=== PATIENT | male | born 1960 | race American Indian/Alaskan Native ===

== ENCOUNTER 2019-08-22 21:43 | Inpatient (IN) | payer OTHER ==
[2019-08-22 23:10] LABS: Hematocrit 35.7 % (35.5-45.6); Hemoglobin 11.8 gm/dl (11.8-15.2); Mean Corpuscular HGB Conc 33 % (32-34); Mean Corpuscular Volume 85 fl (84-94); Platelet Count 185 K/mm3 (140-440); Red Blood Count 4.22 M/mm3 (3.65-5.03); Red Cell Distribution Width 13.6 % (13.2-15.2)
[2019-08-22 23:19] LABS: INR 1.02 (0.87-1.13)
[2019-08-22 23:21] LABS: Calcium 7.5 mg/dL (8.4-10.2)
[2019-08-22] MEDS ORDERED: hydrALAZINE 25 MG TAB PO ONE (23:40)
[2019-08-22] MEDS ORDERED: amLODIPine 5 MG TAB PO ONE (23:40)
[2019-08-22] MEDS ORDERED: METOPROLOL TARTRATE 50 MG TAB PO ONE (23:40)
--- NOTE | 2019-08-22 23:54 | Emergency Department Report ---
ED Medical Clearance HPI - General Chief complaint: High BP Stated complaint: PYHSICIAN REFERRAL ABNORMAL LABS Time Seen by Provider: 08/22/19 23:26 Source: patient, RN notes reviewed, old records reviewed Mode of arrival: Ambulatory Limitations: No Limitations - History of Present Illness Initial comments: Patient is a 58-year-old gentleman. He is not known to myself previously. He denies fever, cough, coronavirus risk factors and symptomatology. He is noncompliant with prescription medications, and appears to have a history of diabetes, stroke versus TIA, hypertension, high cholesterol The patient is sent to the emergency room by a local physicians group. The patient reports that he was at work, and his coworkers felt that he was "getting forgetful." His employer then informed him that he cannot return to work until he had medical clearance. He thus presented to an outpatient medical group, and was found to have renal insufficiency of uncertain duration. The patient denies physical pain. He denies all complaints at this time. He states that if he were not instructed to present to the emergency room for renal insufficiency, he would not have presented to the ER. MD Complaint: medical clearance request Reason for Medical Clearance: laboratory abnormality Alledged Intoxication: No Compliant with Home Medications: No Traumatic Symptoms: denies traumatic injury Allergies/Adverse reactions: Allergies Allergy/AdvReac Type Severity Reaction Status Date / Time No Known Allergies Allergy Unverified 08/22/19 22:22 ED Review of Systems ROS: Stated complaint: PYHSICIAN REFERRAL ABNORMAL LABS Other details as noted in HPI Comment: All other systems reviewed and negative ED Past Medical Hx - Past Medical History Previous Medical History?: Yes Hx Hypertension: Yes Hx Diabetes: Yes Additional medical history: descending Aorta, heart murmur - Surgical History Past Surgical History?: Yes Additional Surgical History: eye - Social History Smoking Status: Never Smoker Substance Use Type: None ED Physical Exam - General Limitations: No Limitations General appearance: alert, in no apparent distress - Head Head exam: Present: atraumatic, normocephalic - Eye Eye exam: Present: normal appearance, PERRL, EOMI, other (Visual acuity intact to finger counting, color perception, reading at a close distance). Absent: nystagmus - ENT ENT exam: Present: normal exam, normal orophraynx, mucous membranes moist, normal external ear exam - Neck Neck exam: Present: normal inspection, full ROM. Absent: tenderness, meningismus - Respiratory Respiratory exam: Present: normal lung sounds bilaterally. Absent: respiratory distress - Cardiovascular Cardiovascular Exam: Present: normal rhythm, tachycardia, normal heart sounds. Absent: systolic murmur, diastolic murmur, rubs, gallop - GI/Abdominal GI/Abdominal exam: Present: soft, normal bowel sounds. Absent: distended, ten derness, guarding, rebound, rigid, pulsatile mass - Rectal Rectal exam: Present: deferred - Extremities Exam Extremities exam: Present: normal inspection, full ROM, other (2+ pulses noted in the bilateral upper and lower extremities. There is no palpable cord. negative Homans sign. Muscular compartments are soft. The pelvis is stable.). Absent: pedal edema, calf tenderness - Back Exam Back exam: Present: normal inspection. Absent: tenderness, CVA tenderness (R), CVA tenderness (L), paraspinal tenderness, vertebral tenderness - Neurological Exam Neurological exam: Present: alert (Patient is alert and oriented. He is able to recall 3 out of 3 words at 0 minutes and 5 minutes. He can add 5+5, but he cannot subtract 100-7 (answers 94).), oriented X3, normal gait, other (No facial droop. Tongue midline. Extraocular movements intact bilaterally. Facial sensation intact to light touch in V1, V2, V3 distribution bilaterally. 5 and a 5 strength in 4 extremities. Sensation intact to light touch in 4 extremities.). Absent: motor sensory deficit - Psychiatric Psychiatric exam: Present: normal affect, normal mood - Skin Skin exam: Present: warm, dry, intact, normal color. Absent: rash ED Course Vital Signs 08/22/19 08/23/19 22:21 00:02 Temperature 98.2 F Pulse Rate 102 H 96 H Respiratory 18 Rate Blood Pressure 226/137 216/123 O2 Sat by Pulse 99 Oximetry - Reevaluation(s) Reevaluation #1: 08/22/19 23:52 Differential diagnosis, including but not limited to: Hypertensive urgency/emergency, intracranial hemorrhage, transient ischemic attack, renal insufficiency Assessment and plan: 58-year-old gentleman with history of forgetfulness, medication noncompliance, clinically sober at this time, GCS 15, NIH score 0, with market hypertension, and renal insufficiency of uncertain chronicity and duration. He does have some of his old prescriptions with him, which he is not taking, and we will therefore give him his hydralazine, metoprolol, and Norvasc. We will obtain noncontrast CT scan of the brain. He is also found to have mild myositis. Discussed history, physical, laboratory studies with nephrology on-call, Dr. Moncada. Admission is recommended for blood pressure control, and vital sign optimization. Reevaluation #2: 08/23/19 00:15 Patient was given oral medications. He initially indicated that he did not want to stay in the hospital. However, he now indicates that he is amenable to hospitalization. Nephrology, Dr. Moncada, will follow in consultation. Hospital physician, Dr. Orourke to admit ED Medical Decision Making - Lab Data Result diagrams: 08/22/19 22:56 08/22/19 22:56 Vital Signs 08/22/19 22:21 Temperature 98.2 F Pulse Rate 102 H Respiratory 18 Rate Blood Pressure 226/137 O2 Sat by Pulse 99 Oximetry Lab Results 08/22/19 08/22/19 08/22/19 Range/Units 22:56 22:56 22:56 WBC 8.9 (4.5-11.0) K/mm3 RBC 4.22 (3.65-5.03) M/mm3 Hgb 11.8 (11.8-15.2) gm/dl Hct 35.7 (35.5-45.6) % MCV 85 (84-94) fl MCH 28 (28-32) pg MCHC 33 (32-34) % RDW 13.6 (13.2-15.2) % Plt Count 185 (140-440) K/mm3 PT 13.5 (12.2-14.9) Sec. INR 1.02 (0.87-1.13) Sodium 143 (137-145) mmol/L Potassium 3.9 (3.6-5.0) mmol/L Chloride 101.8 (98-107) mmol/L Carbon Dioxide 22 (22-30) mmol/L Anion Gap 23 mmol/L BUN 74 H (9-20) mg/dL Creatinine 9.3 H (0.8-1.5) mg/dL Estimated GFR 7 ml/min BUN/Creatinine Ratio 8 % Glucose 92 (75-100) mg/dL Calcium 7.5 L (8.4-10.2) mg/dL Magnesium 2.20 (1.7-2.3) mg/dL Total Bilirubin 0.30 (0.1-1.2) mg/dL AST 24 (5-40) units/L ALT 16 (7-56) units/L Alkaline Phosphatase 204 H (35-129) units/L Total Creatine Kinase 1134 H (55-170) units/L Total Protein 7.4 (6.3-8.2) g/dL Albumin 4.0 (3.9-5) g/dL Albumin/Globulin Ratio 1.2 % - EKG Data -: EKG Interpreted by Me - EKG Data 08/22/19 23:52 There is no prior EKG available for comparison. Sinus rhythm, 98 bpm, left axis deviation, left anterior fascicular block, atrial enlargement, left ventricular hypertrophy, premature ventricular contractions, QTC is prolonged. The EKG is abnormal. There is no prior for comparison. The EKG is not a STEMI - Radiology Data Radiology results: pending, image reviewed interpreted by me: Noncontrast CT scan of the brain shows no acute bleed. Remote left-sided occipital/parietal infarct is noted ED Disposition Clinical Impression: Renal failure, Hypertensive urgency, malignant, Noncompliance Disposition: -09 OP ADMIT IP TO THIS HOSP Is pt being admited?: Yes Condition: Serious Referrals: ODILIA VILLALBA [Other] - 3-5 Days
[2019-08-23] MEDS ORDERED: SODIUM CHLORIDE 0.9% 500 ML 500 ML IV ONE (00:17)
--- NOTE | 2019-08-23 00:17 | Cat Scan Report ---
CT head/brain wo con INDICATION / CLINICAL INFORMATION: htn history of forgetfullness, hx of cva. Headache pain TECHNIQUE: Routine CT of the head All CT scans at this location are performed using CT dose reduction for ALARA by means of automated exposure control. COMPARISON: None available. FINDINGS: There is a chronic cerebral infarcts within the left parieto-occipital region. No acute intracranial hemorrhage or extra-axial collection is identified. No hydrocephalus is appreciated. The paranasal si nuses are clear. The orbits are grossly unremarkable. IMPRESSION: 1. Chronic left parieto-occipital region cerebral infarct, as above. No acute intracranial hemorrhage or acute findings appreciated Signer Name: Apolinar Heredia MD Signed: 08/23/2019 12:13 AM Workstation Name: [id number]
[2019-08-23] MEDS ORDERED: ASPIRIN 81 MG TAB CHEW PO ONE (00:26)
[2019-08-23] MEDS ORDERED: MORPHINE 2 MG/1 ML INJ IV PRN (01:34)
[2019-08-23] MEDS ORDERED: DEXTROSE 50% IN WATER (25GM) 50 ML SYRINGE IV PRN (01:34)
[2019-08-23] MEDS ORDERED: MAGNESIUM HYDROXIDE (MOM) ORAL LIQD UDC PO PRN (01:34)
[2019-08-23] MEDS ORDERED: ONDANSETRON 4 MG/2 ML INJ IV PRN (01:34)
[2019-08-23] MEDS ORDERED: ACETAMINOPHEN 325 MG TAB PO PRN (01:34)
--- NOTE | 2019-08-23 01:48 | History and Physical Report ---
History of Present Illness Date of examination: 08/23/19 Date of admission: 08/23/19 00:17 Chief complaint: Abnormal labs History of present illness: 58-year-old male with known history of hypertension, diabetes mellitus, hyperlipidemia and TIA who appears to be noncompliant with his medications presenting to the emergency room today after being seen by a local physician group and encouraged to report to the emergency room for evaluation. Blood pressure was said to be quite elevated and had some renal insufficiency when he was seen and was encouraged to report to the ER. His employer did also inform him to seek medical attention as he has become increasingly forgetful lately. Evaluation in the emergency room today show significant blood pressure with sys tolic in the 200s and diastolic in the 130 s. He had some medications in the ER with some improvement. Labs and reveals acute renal failure and also elevated creatinine kinase. Service Planner Dr. Moncada was consulted by the emergency room physician and patient will be promptly evaluated. Past History Past Medical History: diabetes, hypertension Past Surgical History: Other (Eye surgery in the past) Social history: no significant social history Family history: hypertension (Hypertension in parents) Medications and Allergies Allergies Allergy/AdvReac Type Severity Reaction Status Date / Time No Known Allergies Allergy Unverified 08/22/19 22:22 Active Meds: Active Medications Acetaminophen (Tylenol) 650 mg PO Q4H PRN PRN Reason: Pain MILD(1-3)/Fever >100.5/BAPTISTE Dextrose (D50w (25gm) Syringe) 50 ml IV Q30MIN PRN; Protocol PRN Reason: Hypoglycemia Hydralazine HCl (Apresoline) 10 mg IV Q4HR PRN PRN Reason: Blood Pressure Sodium Chloride (Nacl 0.9% 1000 Ml) 1,000 mls @ 75 mls/hr IV DIRECT LAMAR Insulin Human Lispro (Humalog) 0 unit SUB-Q ACHS LAMAR; Protocol Magnesium Hydroxide (Milk Of Magnesia) 30 ml PO Q4H PRN PRN Reason: Constipation Morphine Sulfate (Morphine) 2 mg IV Q4H PRN PRN Reason: Pain, Moderate (4-6) Ondansetron HCl (Zofran) 4 mg IV Q8H PRN PRN Reason: Nausea And Vomiting Sodium Chloride (Sodium Chloride Flush Syringe 10 Ml) 10 ml IV BID LAMAR Sodium Chloride (Sodium Chloride Flush Syringe 10 Ml) 10 ml IV PRN PRN PRN Reason: LINE FLUSH Review of Systems Constitutional: no fever, no chills Cardiovascular: no chest pain, no palpitations Respiratory: no cough, no shortness of breath, no congestion Gastrointestinal: no abdominal pain, no nausea, no vomiting, no diarrhea Genitourinary Male: no dysuria, no hematuria, no flank pain Musculoskeletal: no neck pain, no low back pain Integumentary: no rash, no pruritis Neurological: other (Has been forgetful lately), no headaches, no confusion Psychiatric: no anxiety, no depression Exam - Constitutional Vitals: Temp Pulse Resp BP Pulse Ox 98.2 F 81 10 L 188/116 95 08/22/19 22:21 08/23/19 01:00 08/23/19 01:00 08/23/19 01:00 08/23/19 01:00 General appearance: Present: no acute distress, well-nourished - EENT Eyes: Present: PERRL, EOM intact ENT: hearing intact, clear oral mucosa, dentition normal - Neck Neck: Present: supple, normal ROM - Respiratory Respiratory effort: normal Respiratory: bilateral: CTA - Cardiovascular Rhythm: regular Heart Sounds: Present: S1 & S2, systolic murmur (Soft systolic murmur) - Extremities Extremities: no ischemia, No edema, Full ROM Peripheral Pulses: within normal limits - Abdominal General gastrointestinal: Present: soft, non-tender, non-distended, normal bowel sounds - Integumentary Integumentary: Present: clear, warm, dry. Absent: jaundice, rash - Musculoskeletal Musculoskeletal: strength equal bilaterally - Psychiatric Psychiatric: appropriate mood/affect, intact judgment & insight, cooperative - Neurologic Neurologic: CNII-XII intact, moves all extremities Results - Labs CBC & Chem 7: 08/22/19 22:56 08/22/19 22:56 Labs: Abnormal lab results 08/22/19 Range/Units 22:56 BUN 74 H (9-20) mg/dL Creatinine 9.3 H (0.8-1.5) mg/dL Calcium 7.5 L (8.4-10.2) mg/dL Alkaline Phosphatase 204 H (35-129) units/L Total Creatine Kinase 1134 H (55-170) units/L Assessment and Plan - Patient Problems (1) Hypertensive urgency, malignant Current Visit: Yes Status: Acute Plan to address problem: We will resume patient's routine home medications and also placed on IV hydralazine as needed for optimal blood pressure control. Will monitor vitals signs closely. (2) Renal failure Current Visit: Yes Status: Acute Plan to address problem: Consult has been placed to electrotyper and patient will be promptly evaluated. We will continue to monitor BUN and creatinine. (3) Diabetes mellitus Current Visit: Yes Status: Acute Plan to address problem: We will monitor Accu-Cheks and resume routine home medications. (4) Noncompliance Current Visit: Yes Status: Acute Plan to address problem: Counseled on compliance with medications. (5) Elevated creatine kinase Current Visit: Yes Status: Acute Plan to address problem: We will monitor creatinine kinase level. Patient also placed on IV fluid. (6) DVT prophylaxis Current Visit: Yes Status: Acute Plan to address problem: Patient placed on subcutaneous heparin. (7) Full code status Current Visit: Yes Status: Acute
[2019-08-23 02:32] LABS: Uric Acid 6.8 mg/dL (3.5-7.6)
[2019-08-23] MEDS: SODIUM CHLORIDE 0.9% 1000 ML 1,000 ML IV SCH (03:53)
[2019-08-23] MEDS: hydrALAZINE 20 MG/1 ML INJ IV PRN ×2 (04:19→23:30)
[2019-08-23 04:49] LABS: Mucus,Urine FEW /HPF
[2019-08-23 04:53] LABS: Bilirubin,Urine NEG (Negative); Blood,Urine SM (Negative); Color,Urine Straw (Yellow); Urobilinogen,Urine < 2.0 mg/dL (<2.0)
[2019-08-23 04:54] LABS: WBC,Urine < 1.0 /HPF (0.0-6.0)
[2019-08-23 05:01] LABS: Creatinine,Urine 55.4 mg/dL (0.1-20.0)
[2019-08-23 08:03] LABS: Calcium 7.1 mg/dL (8.4-10.2)
[2019-08-23] MEDS: INSULIN LISPRO 100 UNIT/ML SUB-Q SCH ×4 (08:49→22:18)
--- NOTE | 2019-08-23 09:34 | Consultation ---
History of Present Illness - Reason for Consult Consult date: 08/23/19 chronic renal failure, accelerated hypertension - History of Present Illness The patient is a 58 YO male with history significant for Hypertension, type 2 diabetes mellitus, Hyperlipidemia, TIA, Obesity and Medical non-compliance who presented to [facility] ED 08/21 after being seen by a local physician group and encouraged to report to the emergency room for evaluation. He was seen by [facility] on 08/20 and had blood drawn. He was told about very high Blood pressure and abnormal kidney function. Pt stopped all of his medication including Insulin about 3-4 yrs and hasn't taken any meds since then. He c/o nausea and intermittent vomiting. Denies fever, chills, cough, abd pain, dysuria, hematuria, weakness, dizziness, syncope, rash or leg swelling. Denies NSAID intake, kidney stone or recurrent UTIs. His father was on hemodialysis. In the emergency room SBP in the 200s and diastolic in the 130s. Labs significant for Creat 9.6, BUN 78, bicarb 19. Nephrology was consulted for further evaluation. Past History Past Medical History: diabetes, hypertension Past Surgical History: Other (Eye surgery in the past) Social history: no significant social history Family history: hypertension (Hypertension in parents) Medications and Allergies Allergies Allergy/AdvReac Type Severity Reaction Status Date / Time No Known Allergies Allergy Unverified 08/22/19 22:22 Active Meds: Active Medications Acetaminophen (Tylenol) 650 mg PO Q4H PRN PRN Reason: Pain MILD(1-3)/Fever >100.5/BAPTISTE Dextrose (D50w (25gm) Syringe) 0 ml IV Q30MIN PRN; Protocol PRN Reason: Hypoglycemia Hydralazine HCl (Apresoline) 10 mg IV Q4H PRN PRN Reason: Blood Pressure Last Admin: 08/23/19 04:19 Dose: 10 mg Documented by: Sodium Chloride (Nacl 0.9% 1000 Ml) 1,000 mls @ 125 mls/hr IV DIRECT LAMAR Last Admin: 08/23/19 03:53 Dose: 75 mls/hr Documented by: Insulin Human Lispro (Humalog) 0 unit SUB-Q ACHS LAMAR; Protocol Last Admin: 08/23/19 08:49 Dose: Not Given Documented by: Magnesium Hydroxide (Milk Of Magnesia) 30 ml PO Q4H PRN PRN Reason: Constipation Morphine Sulfate (Morphine) 2 mg IV Q4H PRN PRN Reason: Pain, Moderate (4-6) Ondansetron HCl (Zofran) 4 mg IV Q8H PRN PRN Reason: Nausea And Vomiting Sodium Chloride (Sodium Chloride Flush Syringe 10 Ml) 10 ml IV BID LAMAR Sodium Chloride (Sodium Chloride Flush Syringe 10 Ml) 10 ml IV PRN PRN PRN Reason: LINE FLUSH Review of Systems Constitutional: no weight loss, no weight gain, no fever, no chills, no anorexia, no fatigue, no weakness, no poor appetite Ears, nose, mouth and throat: no dysphagia Cardiovascular: high blood pressure, no chest pain, no orthopnea, no edema, no syncope, no lightheadedness, no shortness of breath, no leg edema Respiratory: no cough, no hemoptysis, no shortness of breath, no dyspnea on exertion Gastrointestinal: nausea, vomiting, no abdominal pain, no diarrhea, no melena Genitourinary Male: no dysuria, no hematuria Integumentary: no sores, no jaundice Neurological: no paralysis, no weakness, no change in speech, no change in mentation, no confusion Exam - Vital Signs Vital signs: Vital Signs Temp Pulse Resp BP Pulse Ox 98.2 F 102 H 18 226/137 99 08/22/19 22:21 08/22/19 22:21 08/22/19 22:21 08/22/19 22:21 08/22/19 22:21 - General Appearance General appearance: well-developed, well-nourished, appears stated age, obese, other (not in distress) EENT: ATNC, PERRL, hearing intact, vision intact Neck: Present: neck supple, trachea midline Respiratory: Clear to Ascultation Heart: regular, S1S2, no murmurs Gastrointestinal: Present: normoactive bowel sounds. Absent: tenderness, distended Integumentary: no rash, warm and dry Neurologic: no focal deficit, no asterixis, alert and oriented x3 Musculoskeletal: Present: other (no edema) Psychiatric: cooperative Results - Lab Results 08/22/19 22:56 08/23/19 07:18 Most recent lab results Calcium 7.1 mg/dL (8.4-10.2) L 08/23/19 07:18 Phosphorus 5.00 mg/dL (2.5-4.5) H 08/23/19 07:18 Magnesium 2.10 mg/dL (1.7-2.3) 08/23/19 07:18 Urine Creatinine 55.4 mg/dL (0.1-20.0) H 08/22/19 04:00 Urine Sodium 99 mmol/L 08/22/19 04:00 Assessment and Plan 1. ESRD / CKD stage 5: Patient with h/o long standing uncontrolled HTN and DM. Multiple risk factors for ESRD including family history. Renal US showed bilateral echogenic small kidneys. DEEPIKA, ANCA, Complements, SPEP, UPEP, Anti-GBM ordered. Based on the information I have patient has progressed to ESRD at this time. Symptoms suggestive of uremia present. I discussed with pt in length about the different modalities of dialysis, indications, benefits and risks involved in dialysis. He voiced understanding, agreed to start on dialysis and will let me know about modality of dialysis that he want to undergo. Monitor renal function. Renal prognosis is poor. Avoid nephrotoxic agents. Meds dosage based on GFR. 2. FEN: Anion gap metabolic acidosis, continue IV fluids, monitor. Monitor lytes and volume status. 3. Uncontrolled hypertension: 2/2 non-compliance. BP is better now. Monitor BP. 4. DM type : Blood sugar is controlled without any meds. Typically blood sugar gets better as renal function declines. Follow blood sugar. 5. Secondary hyperparathyroidism: Start on Calcitriol. 6. H/o TIA. 7. Mild Rhabdomyolysis: CK level is improving.
--- NOTE | 2019-08-23 09:56 | Ultrasound Report ---
ULTRASOUND RENAL INDICATION: Acute renal failure.. COMPARISON: No relevant prior imaging study available. FINDINGS: RIGHT KIDNEY: Size: 9.9 cm. Echogenicity: Increased. Cortical thickness: Moderate thinning. Stones: None. Hydronephrosis: None. Cyst or mass: None. LEFT KIDNEY: Size: 9.2 cm. Echogenicity: Increased. Cortical thickness: Moderate thinning. Stones: None. Hydronephrosis: None. Cyst or mass: None. Urinary Bladder: No significant abnormality. Free Fluid: None. Additional Findings: Distal abdominal aorta dilatation, measuring 4.3 cm. IMPRESSION 1. Bilateral renal changes consistent with medical renal disease. 2. Infrarenal abdominal aortic aneurysm, 4.3 cm. Signer Name: Miguel Johnson MD Signed: 08/23/2019 9:51 AM Workstation Name: [id number]
--- NOTE | 2019-08-23 12:24 | Progress Note ---
Assessment and Plan Assessment and plan: Accelerated hypertension. Continue antihypertensive medications. Acute on CKD. Patient with previous history of CKD but no baseline creatinine to compare. Patient likely with medical noncompliance. Nephrology following. Follow-up DEEPIKA, ANCA, C3, C4, SPEP, UPEP, urine eosinophils and GBM antibodies. Plans for initiation of hemodialysis versus peritoneal dialysis. Patient to make a decision on Sunday. Diabetes mellitus type 2. Continue Accu-Cheks and sliding scale insulin. Hyperlipidemia. History Interval history: No new issues overnight. Hospitalist Physical - Constitutional Vitals: Temp Pulse Resp BP Pulse Ox 98.4 F 93 H 19 153/85 98 08/23/19 11:33 08/23/19 11:33 08/23/19 11:33 08/23/19 11:33 08/23/19 11:33 General appearance: Present: no acute distress, well-nourished - EENT Eyes: Present: PERRL, EOM intact ENT: hearing intact, clear oral mucosa, dentition normal - Neck Neck: Present: supple, normal ROM - Respiratory Respiratory effort: normal Respiratory: bilateral: CTA - Cardiovascular Rhythm: regular Heart Sounds: Present: S1 & S2. Absent: gallop, rub - Extremities Extremities: no ischemia, No edema, Full ROM - Abdominal General gastrointestinal: soft, non-tender, non-distended, normal bowel sounds - Integumentary Integumentary: Present: clear, warm, dry - Neurologic Neurologic: CNII-XII intact, moves all extremities Results - Labs CBC & Chem 7: 08/22/19 22:56 08/23/19 07:18 Labs: Laboratory Last Values WBC 8.9 K/mm3 (4.5-11.0) 08/22/19 22:56 RBC 4.22 M/mm3 (3.65-5.03) 08/22/19 22:56 Hgb 11.8 gm/dl (11.8-15.2) 08/22/19 22:56 Hct 35.7 % (35.5-45.6) 08/22/19 22:56 MCV 85 fl (84-94) 08/22/19 22:56 MCH 28 pg (28-32) 08/22/19 22:56 MCHC 33 % (32-34) 08/22/19 22:56 RDW 13.6 % (13.2-15.2) 08/22/19 22:56 Plt Count 185 K/mm3 (140-440) 08/22/19 22:56 PT 13.5 Sec. (12.2-14.9) 08/22/19 22:56 INR 1.02 (0.87-1.13) 08/22/19 22:56 Sodium 142 mmol/L (137-145) 08/23/19 07:18 Potassium 3.8 mmol/L (3.6-5.0) 08/23/19 07:18 Chloride 106.8 mmol/L (98-107) 08/23/19 07:18 Carbon Dioxide 19 mmol/L (22-30) L 08/23/19 07:18 Anion Gap 20 mmol/L 08/23/19 07:18 BUN 78 mg/dL (9-20) H 08/23/19 07:18 Creatinine 9.6 mg/dL (0.8-1.5) H 08/23/19 07:18 Estimated GFR 7 ml/min 08/23/19 07:18 BUN/Creatinine Ratio 8 % 08/23/19 07:18 Glucose 130 mg/dL (75-100) H 08/23/19 07:18 POC Glucose 183 (70-105) H 08/23/19 11:46 Hemoglobin A1c 5.2 % (4-6) 08/23/19 Unknown Uric Acid 6.8 mg/dL (3.5-7.6) 08/22/19 22:56 Calcium 7.1 mg/dL (8.4-10.2) L 08/23/19 07:18 Phosphorus 5.00 mg/dL (2.5-4.5) H 08/23/19 07:18 Magnesium 2.10 mg/dL (1.7-2.3) 08/23/19 07:18 Total Bilirubin 0.30 mg/dL (0.1-1.2) 08/22/19 22:56 AST 24 units/L (5-40) 08/22/19 22:56 ALT 16 units/L (7-56) 08/22/19 22:56 Alkaline Phosphatase 204 units/L (35-129) H 08/22/19 22:56 Total Creatine Kinase 922 units/L (55-170) H 08/23/19 07:16 Total Protein 7.4 g/dL (6.3-8.2) 08/22/19 22:56 Albumin 4.0 g/dL (3.9-5) 08/22/19 22:56 Albumin/Globulin Ratio 1.2 % 08/22/19 22:56 TSH 2.820 mlU/mL (0.270-4.200) 08/22/19 22:56 PTH Intact 781.3 pg/mL (15-65) H 08/23/19 07:18 Urine Color Straw (Yellow) 08/22/19 04:00 Urine Turbidity Clear (Clear) 08/22/19 04:00 Urine pH 7.0 (5.0-7.0) 08/22/19 04:00 Ur Specific [place] 1.009 (1.003-1.030) 08/22/19 04:00 Urine Protein 100 mg/dl mg/dL (Negative) 08/22/19 04:00 Urine Glucose (UA) 50 mg/dL (Negative) 08/22/19 04:00 Urine Ketones Neg mg/dL (Negative) 08/22/19 04:00 Urine Blood Sm (Negative) 08/22/19 04:00 Urine Nitrite Neg (Negative) 08/22/19 04:00 Ur Reducing Substances Not Reportable 08/22/19 04:00 Urine Bilirubin Neg (Negative) 08/22/19 04:00 Urine Ictotest Not Reportable 08/22/19 04:00 Urine Urobilinogen < 2.0 mg/dL (<2.0) 08/22/19 04:00 Ur Leukocyte Esterase Neg (Negative) 08/22/19 04:00 Urine WBC (Auto) < 1.0 /HPF (0.0-6.0) 08/22/19 04:00 Urine RBC (Auto) 1.0 /HPF (0.0-6.0) 08/22/19 04:00 Urine Mucus Few /HPF 08/22/19 04:00 Urine Osmolality 310 Mosm/kg 08/22/19 04:00 Urine Creatinine 55.4 mg/dL (0.1-20.0) H 08/22/19 04:00 Urine Sodium 99 mmol/L 08/22/19 04:00 [place]/IV: Voiding Method Toilet IV Catheter Type [Right INT / Saline Lock Antecubital] Active Medications - Current Medications Current Medications: Generic Name Dose Route Start Last Admin Trade Name Freq PRN Reason Stop Dose Admin Acetaminophen 650 mg 08/23/19 01:34 Tylenol PO Q4H PRN Pain MILD(1-3)/Fever >100.5/BAPTISTE Dextrose 0 ml 08/23/19 01:34 D50w (25gm) Syringe IV Q30MIN PRN Hypoglycemia Protocol Hydralazine HCl 10 mg 08/23/19 01:40 08/23/19 04:19 Apresoline IV 10 mg Q4H PRN Administration Blood Pressure Sodium Chloride 1,000 mls @ 75 mls/hr 08/23/19 01:45 08/23/19 03:53 Nacl 0.9% 1000 Ml IV 75 mls/hr DIRECT LAMAR Administration Insulin Human Lispro 0 unit 08/23/19 07:30 08/23/19 12:01 Humalog SUB-Q Not Given ACHS LAMAR Protocol Magnesium Hydroxide 30 ml 08/23/19 01:34 Milk Of Magnesia PO Q4H PRN Constipation Morphine Sulfate 2 mg 08/23/19 01:34 Morphine IV Q4H PRN Pain, Moderate (4-6) Ondansetron HCl 4 mg 08/23/19 01:34 Zofran IV Q8H PRN Nausea And Vomiting Sodium Chloride 10 ml 08/23/19 10:00 08/23/19 09:54 Sodium Chloride Flush Syringe 10 Ml IV 10 ml BID LAMAR Administration Sodium Chloride 10 ml 08/23/19 01:34 Sodium Chloride Flush Syringe 10 Ml IV PRN PRN LINE FLUSH Nutrition/Malnutrition Assess - Dietary Evaluation Nutrition/Malnutrition Findings: Nutrition Notes Start: 08/23/19 09:56 Freq: Status: Active Protocol: Document 08/23/19 09:56 LM (Rec: 08/23/19 10:02 LM [email or web address]) Nutrition Notes Need for Assessment generated from: MD Order Initial or Follow up Brief Note Current Diagnosis Diabetes,Hypertension, Hyperlipidemia Other Pertinent Diagnosis hypertensive urgency, noncompliance, renal failure Current Diet cardiac/consistent CHO Labs/Tests Phos 5 BUN 78 Cr 9.6 Pertinent Medications NaCl at 125ml/hr Height 5 ft 4 in Weight 88.3 kg [place] Body Weight (kg) 59.09 BMI 33.4 Weight Status Obese Subjective/Other Information MD consult for diet education. Unable to reach pt. Per chart pt getting ultrasound. Nutrition Intervention Change Diet Order: cardiac/consistent CHO/renal Follow-Up By: 08/25/19 Additional Comments F/U for diet education needs
[2019-08-24] MEDS: hydrALAZINE 20 MG/1 ML INJ IV PRN ×2 (06:06→12:13)
[2019-08-24 06:07] LABS: Basophils # (Auto) 0.1 K/mm3 (0.0-0.1); Basophils % (Auto) 0.7 % (0.0-1.8); Eosinophils # (Auto) 0.1 K/mm3 (0.0-0.4); Hematocrit 33.5 % (35.5-45.6); Hemoglobin 11.3 gm/dl (11.8-15.2); Mean Corpuscular HGB Conc 34 % (32-34); Mean Corpuscular Volume 86 fl (84-94); Monocytes # (Auto) 0.6 K/mm3 (0.0-0.8); Monocytes % (Auto) 8.5 % (0.0-7.3); Platelet Count 169 K/mm3 (140-440); Red Cell Distribution Width 13.7 % (13.2-15.2)
[2019-08-24 06:19] LABS: INR 1.09 (0.87-1.13)
[2019-08-24 06:37] LABS: Calcium 7.4 mg/dL (8.4-10.2)
[2019-08-24] MEDS: INSULIN LISPRO 100 UNIT/ML SUB-Q SCH ×4 (07:30→22:30)
[2019-08-24] MEDS: NIFEdipine XL 60 MG TAB PO SCH ×2 (09:01→22:01)
--- NOTE | 2019-08-24 10:04 | Progress Note ---
Assessment and Plan Assessment and plan: Accelerated hypertension. Continue antihypertensive medications. Acute on CKD. Plans for initiation of hemodialysis versus peritoneal dialysis. Patient to make a decision on Sunday. Diabetes mellitus type 2. Continue Accu-Cheks and sliding scale insulin. Hyperlipidemia. 08/24/2019. Renal US showed bilateral echogenic small kidneys. Follow-up DEEPIKA, ANCA, Complements, SPEP, UPEP, Anti-GBM. Continue antihypertensive medications. Continue Accu-Cheks and sliding scale insulin. Await patient decision to start dialysis. Nephrology following. History Interval history: No new issues overnight. Hospitalist Physical - Constitutional Vitals: Temp Pulse Resp BP Pulse Ox 98.4 F 99 H 20 187/106 97 08/24/19 05:55 08/24/19 05:55 08/24/19 05:55 08/24/19 05:55 08/24/19 05:55 General appearance: Present: no acute distress, well-nourished - EENT Eyes: Present: PERRL, EOM intact ENT: hearing intact, clear oral mucosa, dentition normal - Neck Neck: Present: supple, normal ROM - Respiratory Respiratory effort: normal Respiratory: bilateral: CTA - Cardiovascular Rhythm: regular Heart Sounds: Present: S1 & S2. Absent: gallop, rub - Extremities Extremities: no ischemia, No edema, Full ROM - Abdominal General gastrointestinal: soft, non-tender, non-distended, normal bowel sounds - Integumentary Integumentary: Present: clear, warm, dry - Neurologic Neurologic: CNII-XII intact, moves all extremities Results - Labs CBC & Chem 7: 08/24/19 05:59 08/24/19 05:59 Labs: Laboratory Last Values WBC 7.0 K/mm3 (4.5-11.0) 08/24/19 05:59 RBC 3.90 M/mm3 (3.65-5.03) 08/24/19 05:59 Hgb 11.3 gm/dl (11.8-15.2) L 08/24/19 05:59 Hct 33.5 % (35.5-45.6) L 08/24/19 05:59 MCV 86 fl (84-94) 08/24/19 05:59 MCH 29 pg (28-32) 08/24/19 05:59 MCHC 34 % (32-34) 08/24/19 05:59 RDW 13.7 % (13.2-15.2) 08/24/19 05:59 Plt Count 169 K/mm3 (140-440) 08/24/19 05:59 Lymph % (Auto) 29.0 % (13.4-35.0) 08/24/19 05:59 [place] % (Auto) 8.5 % (0.0-7.3) H 08/24/19 05:59 Eos % (Auto) 2.0 % (0.0-4.3) 08/24/19 05:59 Baso % (Auto) 0.7 % (0.0-1.8) 08/24/19 05:59 Lymph # 2.0 K/mm3 (1.2-5.4) 08/24/19 05:59 [place] # 0.6 K/mm3 (0.0-0.8) 08/24/19 05:59 Eos # 0.1 K/mm3 (0.0-0.4) 08/24/19 05:59 Baso # 0.1 K/mm3 (0.0-0.1) 08/24/19 05:59 Seg Neutrophils % 59.8 % (40.0-70.0) 08/24/19 05:59 Seg Neutrophils # 4.2 K/mm3 (1.8-7.7) 08/24/19 05:59 PT 14.2 Sec. (12.2-14.9) 08/24/19 05:59 INR 1.09 (0.87-1.13) 08/24/19 05:59 Sodium 143 mmol/L (137-145) 08/24/19 05:59 Potassium 3.6 mmol/L (3.6-5.0) 08/24/19 05:59 Chloride 103.5 mmol/L (98-107) 08/24/19 05:59 Carbon Dioxide 20 mmol/L (22-30) L 08/24/19 05:59 Anion Gap 23 mmol/L 08/24/19 05:59 BUN 76 mg/dL (9-20) H 08/24/19 05:59 Creatinine 10.1 mg/dL (0.8-1.5) H 08/24/19 05:59 Estimated GFR 6 ml/min 08/24/19 05:59 BUN/Creatinine Ratio 8 % 08/24/19 05:59 Glucose 95 mg/dL (75-100) 08/24/19 05:59 POC Glucose 84 (70-105) 08/24/19 07:38 Hemoglobin A1c 5.2 % (4-6) 08/23/19 Unknown Uric Acid 6.8 mg/dL (3.5-7.6) 08/22/19 22:56 Calcium 7.4 mg/dL (8.4-10.2) L 08/24/19 05:59 Phosphorus 5.00 mg/dL (2.5-4.5) H 08/23/19 07:18 Magnesium 2.10 mg/dL (1.7-2.3) 08/23/19 07:18 Total Bilirubin 0.30 mg/dL (0.1-1.2) 08/22/19 22:56 AST 24 units/L (5-40) 08/22/19 22:56 ALT 16 units/L (7-56) 08/22/19 22:56 Alkaline Phosphatase 204 units/L (35-129) H 08/22/19 22:56 Total Creatine Kinase 922 units/L (55-170) H 08/23/19 07:16 Total Protein 7.4 g/dL (6.3-8.2) 08/22/19 22:56 Albumin 4.0 g/dL (3.9-5) 08/22/19 22:56 Albumin/Globulin Ratio 1.2 % 08/22/19 22:56 TSH 2.820 mlU/mL (0.270-4.200) 08/22/19 22:56 PTH Intact 781.3 pg/mL (15-65) H 08/23/19 07:18 Urine Color Straw (Yellow) 08/22/19 04:00 Urine Turbidity Clear (Clear) 08/22/19 04:00 Urine pH 7.0 (5.0-7.0) 08/22/19 04:00 Ur Specific [place] 1.009 (1.003-1.030) 08/22/19 04:00 Urine Protein 100 mg/dl mg/dL (Negative) 08/22/19 04:00 Urine Glucose (UA) 50 mg/dL (Negative) 08/22/19 04:00 Urine Ketones Neg mg/dL (Negative) 08/22/19 04:00 Urine Blood Sm (Negative) 08/22/19 04:00 Urine Nitrite Neg (Negative) 08/22/19 04:00 Ur Reducing Substances Not Reportable 08/22/19 04:00 Urine Bilirubin Neg (Negative) 08/22/19 04:00 Urine Ictotest Not Reportable 08/22/19 04:00 Urine Urobilinogen < 2.0 mg/dL (<2.0) 08/22/19 04:00 Ur Leukocyte Esterase Neg (Negative) 08/22/19 04:00 Urine WBC (Auto) < 1.0 /HPF (0.0-6.0) 08/22/19 04:00 Urine RBC (Auto) 1.0 /HPF (0.0-6.0) 08/22/19 04:00 Urine Mucus Few /HPF 08/22/19 04:00 Urine Eosinophils None seen (None Seen) 08/23/19 Unknown Urine Osmolality 310 Mosm/kg 08/22/19 04:00 Urine Creatinine 55.4 mg/dL (0.1-20.0) H 08/22/19 04:00 Urine Sodium 99 mmol/L 08/22/19 04:00 [place]/IV: Voiding Method Toilet IV Catheter Type [Right INT / Saline Lock Antecubital] Active Medications - Current Medications Current Medications: Generic Name Dose Route Start Last Admin Trade Name Freq PRN Reason Stop Dose Admin Acetaminophen 650 mg 08/23/19 01:34 Tylenol PO Q4H PRN Pain MILD(1-3)/Fever >100.5/BAPTISTE Dextrose 0 ml 08/23/19 01:34 D50w (25gm) Syringe IV Q30MIN PRN Hypoglycemia Protocol Hydralazine HCl 10 mg 08/23/19 01:40 08/24/19 06:06 Apresoline IV 10 mg Q4H PRN Administration Blood Pressure Sodium Chloride 1,000 mls @ 75 mls/hr 08/23/19 01:45 08/23/19 03:53 Nacl 0.9% 1000 Ml IV 75 mls/hr DIRECT LAMAR Administration Insulin Human Lispro 0 unit 08/23/19 07:30 08/24/19 07:30 Humalog SUB-Q Not Given ACHS LAMAR Protocol Magnesium Hydroxide 30 ml 08/23/19 01:34 Milk Of Magnesia PO Q4H PRN Constipation Morphine Sulfate 2 mg 08/23/19 01:34 Morphine IV Q4H PRN Pain, Moderate (4-6) Nifedipine 60 mg 08/24/19 10:00 08/24/19 09:01 Procardia Xl PO 60 mg Q12HR LAMAR Administration Ondansetron HCl 4 mg 08/23/19 01:34 Zofran IV Q8H PRN Nausea And Vomiting Sodium Chloride 10 ml 08/23/19 10:00 08/24/19 09:01 Sodium Chloride Flush Syringe 10 Ml IV 10 ml BID LAMAR Administration Sodium Chloride 10 ml 08/23/19 01:34 Sodium Chloride Flush Syringe 10 Ml IV PRN PRN LINE FLUSH Nutrition/Malnutrition Assess - Dietary Evaluation Nutrition/Malnutrition Findings: Nutrition Notes Start: 08/23/19 09:56 Freq: Status: Active Protocol: Document 08/23/19 09:56 LM (Rec: 08/23/19 10:02 LM [email or web address]) Nutrition Notes Need for Assessment generated from: MD Order Initial or Follow up Brief Note Current Diagnosis Diabetes,Hypertension, Hyperlipidemia Other Pertinent Diagnosis hypertensive urgency, noncompliance, renal failure Current Diet cardiac/consistent CHO Labs/Tests Phos 5 BUN 78 Cr 9.6 Pertinent Medications NaCl at 125ml/hr Height 5 ft 4 in Weight 88.3 kg [place] Body Weight (kg) 59.09 BMI 33.4 Weight Status Obese Subjective/Other Information MD consult for diet education. Unable to reach pt. Per chart pt getting ultrasound. Nutrition Intervention Change Diet Order: cardiac/consistent CHO/renal Follow-Up By: 08/25/19 Additional Comments F/U for diet education needs
--- NOTE | 2019-08-24 11:26 | Progress Note ---
Assessment and Plan 1. ESRD / CKD stage 5: Patient with h/o long standing uncontrolled HTN and DM. Multiple risk factors for ESRD including family history. Renal US showed bilateral echogenic small kidneys. DEEPIKA, ANCA, Complements, SPEP, UPEP, Anti-GBM ordered. Based on the information I have patient has progressed to ESRD at this time. Symptoms suggestive of uremia present. I discussed with pt about indications, benefits and risks involved in hemodialysis. He voiced understanding, agreed to start on hemodialysis 08/24. Recommended kidney biopsy but he declined. Monitor renal function. Renal prognosis is poor. Avoid nephrotoxic agents. Meds dosage based on GFR. Vascular consult. Hemodialysis: 08/24 (planned). 2. FEN: Anion gap metabolic acidosis, continue IV fluids, monitor. Monitor lytes and volume status. 3. Uncontrolled hypertension: 2/2 non-compliance. Metoprolol added and IV fluids decreased. Monitor BP. 4. DM type : Blood sugar is controlled, only on SSI. Typically blood sugar gets better as renal function declines. Follow blood sugar. 5. Secondary hyperparathyroidism: Started on Calcitriol. 6. H/o TIA. 7. Mild Rhabdomyolysis: CK level is improving. Subjective: Patient was seen and examined at the bedside. C/o decreased appetite. - General Appearance General appearance: well-developed, well-nourished, appears stated age, obese, not in distress HEENT: [place], [place], hearing intact, vision intact Neck: neck supple, trachea midline Respiratory: Clear to Ascultation Heart: regular, S1S2, no murmur Gastrointestinal: soft, normoactive bowel sounds, not tender Integumentary: no rash, warm and dry Neurologic: no focal deficit, no asterixis, alert and oriented x3 Ext: no edema Psychiatric: cooperative Subjective Date of service: 08/24/19 Objective - Vital Signs Vital signs: Vital Signs - 12hr 08/24/19 05:55 Temperature 98.4 F Pulse Rate 99 H Respiratory 20 Rate Blood Pressure 187/106 O2 Sat by Pulse 97 Oximetry - Lab 08/24/19 05:59 08/24/19 05:59 Most recent lab results Calcium 7.4 mg/dL (8.4-10.2) L 08/24/19 05:59 Phosphorus 5.00 mg/dL (2.5-4.5) H 08/23/19 07:18 Magnesium 2.10 mg/dL (1.7-2.3) 08/23/19 07:18 Urine Creatinine 55.4 mg/dL (0.1-20.0) H 08/22/19 04:00 Urine Sodium 99 mmol/L 08/22/19 04:00 Medications & Allergies - Medications Allergies/Adverse Reactions: Allergies No Known Allergies Allergy (Unverified 08/22/19 22:22) Active Medications: Generic Name Dose Route Start Last Admin Trade Name Freq PRN Reason Stop Dose Admin Acetaminophen 650 mg 08/23/19 01:34 Tylenol PO Q4H PRN Pain MILD(1-3)/Fever >100.5/BAPTISTE Dextrose 0 ml 08/23/19 01:34 D50w (25gm) Syringe IV Q30MIN PRN Hypoglycemia Protocol Hydralazine HCl 10 mg 08/23/19 01:40 08/24/19 06:06 Apresoline IV 10 mg Q4H PRN Administration Blood Pressure Sodium Chloride 1,000 mls @ 75 mls/hr 08/23/19 01:45 08/23/19 03:53 Nacl 0.9% 1000 Ml IV 75 mls/hr DIRECT LAMAR Administration Insulin Human Lispro 0 unit 08/23/19 07:30 08/24/19 07:30 Humalog SUB-Q Not Given ACHS LAMAR Protocol Magnesium Hydroxide 30 ml 08/23/19 01:34 Milk Of Magnesia PO Q4H PRN Constipation Morphine Sulfate 2 mg 08/23/19 01:34 Morphine IV Q4H PRN Pain, Moderate (4-6) Nifedipine 60 mg 08/24/19 10:00 08/24/19 09:01 Procardia Xl PO 60 mg Q12HR LAMAR Administration Ondansetron HCl 4 mg 08/23/19 01:34 Zofran IV Q8H PRN Nausea And Vomiting Sodium Chloride 10 ml 08/23/19 10:00 08/24/19 09:01 Sodium Chloride Flush Syringe 10 Ml IV 10 ml BID LAMAR Administration Sodium Chloride 10 ml 08/23/19 01:34 Sodium Chloride Flush Syringe 10 Ml IV PRN PRN LINE FLUSH
[2019-08-24] MEDS: CALCITRIOL 0.5 MCG CAP PO SCH (12:13)
[2019-08-24] MEDS: SODIUM CHLORIDE 0.9% 1000 ML 1,000 ML IV SCH (12:29)
[2019-08-24] MEDS: METOPROLOL TARTRATE 50 MG TAB PO SCH ×2 (13:37→22:01)
[2019-08-25 08:05] LABS: Calcium 7.6 mg/dL (8.4-10.2)
--- NOTE | 2019-08-25 08:48 | Consultation ---
History of Present Illness - Reason for Consult Consult date: 08/25/19 dialysis accesss Requesting physician: BARBI ALVAREZ - History of Present Illness HPI: 58-year-old gentleman currently hospitalized with uncontrolled hypertension and diabetes mellitus who during this hospitalization was also noted to have poor renal function requiring dialysis initiation. Patient is not been on dialysis previously and still makes urine. The patient is left hand dominant. PE: NAD, A&Ox3 RRR non-labored respirations neuro grossly intact Labs reviewed Plan: Patient has progressed to ESRD per Nephrology will plan for permcath placement today Past History Past Medical History: diabetes, hypertension Past Surgical History: Other (Eye surgery in the past) Social history: no significant social history Family history: hypertension (Hypertension in parents) Medications and Allergies Allergies Allergy/AdvReac Type Severity Reaction Status Date / Time No Known Allergies Allergy Unverified 08/22/19 22:22 Active Meds: Active Medications Acetaminophen (Tylenol) 650 mg PO Q4H PRN PRN Reason: Pain MILD(1-3)/Fever >100.5/BAPTISTE Calcitriol (Rocaltrol) 0.5 mcg PO QDAY [facility] Last Admin: 08/24/19 12:13 Dose: 0.5 mcg Documented by: Dextrose (D50w (25gm) Syringe) 0 ml IV Q30MIN PRN; Protocol PRN Reason: Hypoglycemia Hydralazine HCl (Apresoline) 10 mg IV Q4H PRN PRN Reason: Blood Pressure Last Admin: 08/24/19 12:13 Dose: 10 mg Documented by: Sodium Chloride (Nacl 0.9% 1000 Ml) 1,000 mls @ 30 mls/hr IV DIRECT [facility] Last Admin: 08/24/19 12:29 Dose: 75 mls/hr Documented by: Insulin Human Lispro (Humalog) 0 unit SUB-Q ACHS LAMAR; Protocol Last Admin: 08/24/19 22:30 Dose: Not Given Documented by: Magnesium Hydroxide (Milk Of Magnesia) 30 ml PO Q4H PRN PRN Reason: Constipation Metoprolol Tartrate (Metoprolol) 50 mg PO BID [facility] Last Admin: 08/24/19 22:01 Dose: 50 mg Documented by: Morphine Sulfate (Morphine) 2 mg IV Q4H PRN PRN Reason: Pain, Moderate (4-6) Nifedipine (Procardia Xl) 60 mg PO Q12HR [facility] Last Admin: 08/24/19 22:01 Dose: 60 mg Documented by: Ondansetron HCl (Zofran) 4 mg IV Q8H PRN PRN Reason: Nausea And Vomiting Sodium Chloride (Sodium Chloride Flush Syringe 10 Ml) 10 ml IV BID [facility] Last Admin: 08/24/19 22:01 Dose: 10 ml Documented by: Sodium Chloride (Sodium Chloride Flush Syringe 10 Ml) 10 ml IV PRN PRN PRN Reason: LINE FLUSH Exam - Constitutional Vitals: Temp Pulse Resp BP Pulse Ox 98.2 F 83 18 148/88 98 08/25/19 06:27 08/25/19 06:27 08/25/19 06:27 08/25/19 06:27 08/25/19 06:27 Results - Labs CBC & Chem 7: 08/24/19 05:59 08/25/19 07:00 Labs: Abnormal lab results 08/24/19 08/25/19 Range/Units 11:30 07:00 Carbon Dioxide 21 L (22-30) mmol/L BUN 78 H (9-20) mg/dL Creatinine 10.4 H (0.8-1.5) mg/dL POC Glucose 120 H (70-105) Calcium 7.6 L (8.4-10.2) mg/dL Total Creatine Kinase 929 H (55-170) units/L
[2019-08-25] MEDS ORDERED: SODIUM CHLORIDE 0.9% 250ML 0 ML ONE (09:34)
[2019-08-25] MEDS ORDERED: HEPARIN/NS 5000 UNIT/500ML 500 ML IR ONE (09:34)
[2019-08-25] MEDS: INSULIN LISPRO 100 UNIT/ML SUB-Q SCH ×4 (09:38→22:20)
--- NOTE | 2019-08-25 10:05 | Progress Note ---
Assessment and Plan 1. ESRD / CKD stage 5: Patient with h/o long standing uncontrolled HTN and DM. Multiple risk factors for ESRD including family history. Renal US showed bilateral echogenic small kidneys. DEEPIKA, ANCA, Complements, SPEP, UPEP, Anti-GBM ordered and pending. Based on the information known patient has progressed to ESRD at this time. Symptoms suggestive of uremia present. Dr. Moncada discussed with pt about indications, benefits and risks involved in hemodialysis (08/23). He voiced understanding, agreed to start on hemodialysis 08/24. Recommended kidney biopsy but he declined. Pt had numerous questions about HD after having permcath placed. All questions and concerns were addressed in presence of HD nurse and pt again agreed to HD (08/24). Monitor renal function. Renal prognosis is poor. Avoid nephrotoxic agents. Meds dosage based on GFR. R chest permcath placed 08/24. Initiation of HD today with slow blood flow rate and no fluid removal. Hemodialysis: 08/24. 2. FEN: Anion gap metabolic acidosis, continue IV fluids, monitor. Monitor lytes and volume status. 3. Uncontrolled hypertension: 2/2 non-compliance. Metoprolol and Nifedipine added 08/23. BP is improving. Monitor BP. 4. DM type : Blood sugar is controlled, only on SSI. Typically blood sugar gets better as renal function declines. Follow blood sugar. 5. Secondary hyperparathyroidism: Started on Calcitriol. 6. H/o TIA. 7. Mild Rhabdomyolysis: CK level is improving. Subjective Date of service: 08/25/19 Interval history: Patient was seen and examined at the bedside in HD. He had permcath placed this morning to R chest. Had numerous questions regarding process of HD and all were answered in presence of HD nurse. No other complaints or questions at this time. Objective - Exam Narrative Exam: General appearance: well-developed, well-nourished, appears stated age, obese, not in distress HEENT: [place], [place], hearing intact, vision intact Neck: neck supple, trachea midline Respiratory: Clear to Ascultation Heart: regular, S1S2, no murmur Gastrointestinal: soft, normoactive bowel sounds, not tender Integumentary: no rash, warm and dry Neurologic: no focal deficit, no asterixis, alert and oriented x3, drowsy Ext: no edema Psychiatric: cooperative Hemodialysis access: R chest permcath - Vital Signs Vital signs: Vital Signs - 12hr 08/24/19 08/25/19 22:20 06:27 Temperature 97.5 F L 98.2 F Pulse Rate 85 83 Respiratory 18 18 Rate Blood Pressure 155/94 148/88 O2 Sat by Pulse 99 98 Oximetry - Lab 08/24/19 05:59 08/25/19 07:00 Most recent lab results Calcium 7.6 mg/dL (8.4-10.2) L 08/25/19 07:00 Phosphorus 5.00 mg/dL (2.5-4.5) H 08/23/19 07:18 Magnesium 2.10 mg/dL (1.7-2.3) 08/23/19 07:18 Urine Creatinine 55.4 mg/dL (0.1-20.0) H 08/22/19 04:00 Urine Sodium 99 mmol/L 08/22/19 04:00 Medications & Allergies - Medications Allergies/Adverse Reactions: Allergies No Known Allergies Allergy (Unverified 08/22/19 22:22) Active Medications: Generic Name Dose Route Start Last Admin Trade Name Freq PRN Reason Stop Dose Admin Acetaminophen 650 mg 08/23/19 01:34 Tylenol PO Q4H PRN Pain MILD(1-3)/Fever >100.5/BAPTISTE Calcitriol 0.5 mcg 08/24/19 12:00 08/24/19 12:13 Rocaltrol PO 0.5 mcg QDAY LAMAR Administration Dextrose 0 ml 08/23/19 01:34 D50w (25gm) Syringe IV Q30MIN PRN Hypoglycemia Protocol Hydralazine HCl 10 mg 08/23/19 01:40 08/24/19 12:13 Apresoline IV 10 mg Q4H PRN Administration Blood Pressure Sodium Chloride 1,000 mls @ 30 mls/hr 08/23/19 01:45 08/24/19 12:29 Nacl 0.9% 1000 Ml IV 75 mls/hr DIRECT LAMAR Administration Insulin Human Lispro 0 unit 08/23/19 07:30 08/25/19 09:38 Humalog SUB-Q Not Given ACHS LAMAR Protocol Magnesium Hydroxide 30 ml 08/23/19 01:34 Milk Of Magnesia PO Q4H PRN Constipation Metoprolol Tartrate 50 mg 08/24/19 13:00 08/24/19 22:01 Metoprolol PO 50 mg BID LAMAR Administration Morphine Sulfate 2 mg 08/23/19 01:34 Morphine IV Q4H PRN Pain, Moderate (4-6) Nifedipine 60 mg 08/24/19 10:00 08/24/19 22:01 Procardia Xl PO 60 mg Q12HR LAMAR Administration Ondansetron HCl 4 mg 08/23/19 01:34 Zofran IV Q8H PRN Nausea And Vomiting Sodium Chloride 10 ml 08/23/19 10:00 08/24/19 22:01 Sodium Chloride Flush Syringe 10 Ml IV 10 ml BID LAMAR Administration Sodium Chloride 10 ml 08/23/19 01:34 Sodium Chloride Flush Syringe 10 Ml IV PRN PRN LINE FLUSH
[2019-08-25] MEDS: fentaNYL 100 MCG/2 ML INJ ONE ×2 (10:16→10:26)
[2019-08-25] MEDS: MIDAZOLAM 2 MG/2 ML INJ ONE ×2 (10:16→10:26)
[2019-08-25] MEDS: LIDOCAINE 1%/EPINEPHRINE 1:100,000 VIAL (20 ML) INFILTRATI ONE ×3 (10:21→10:54)
[2019-08-25] MEDS: HYDROmorphone 1 MG/1 ML INJ ONE ×2 (10:31→10:53)
--- NOTE | 2019-08-25 10:31 | Progress Note ---
Assessment and Plan Assessment and plan: Accelerated hypertension. Continue antihypertensive medications. Acute on CKD. Plans for initiation of hemodialysis versus peritoneal dialysis. Patient to make a decision on Sunday. Diabetes mellitus type 2. Continue Accu-Cheks and sliding scale insulin. Hyperlipidemia. 08/24/2019. Renal US showed bilateral echogenic small kidneys. Follow-up DEEPIKA, ANCA, Complements, SPEP, UPEP, Anti-GBM. Continue antihypertensive medications. Continue Accu-Cheks and sliding scale insulin. Await patient decision to start dialysis. Nephrology following. 08/25/2019. Renal US showed bilateral echogenic small kidneys. Follow-up DEEPIKA, ANCA, Complements, SPEP, UPEP, Anti-GBM. Continue antihypertensive medications. Continue Accu-Cheks and sliding scale insulin. Await patient decision to start dialysis. Nephrology following. History Interval history: No new issues overnight. Hospitalist Physical - Constitutional Vitals: Temp Pulse Resp BP Pulse Ox 98.2 F 83 18 148/88 98 08/25/19 06:27 08/25/19 06:27 08/25/19 06:27 08/25/19 06:27 08/25/19 06:27 General appearance: Present: no acute distress, well-nourished - EENT Eyes: Present: PERRL, EOM intact ENT: hearing intact, clear oral mucosa, dentition normal - Neck Neck: Present: supple, normal ROM - Respiratory Respiratory effort: normal Respiratory: bilateral: CTA - Cardiovascular Rhythm: regular Heart Sounds: Present: S1 & S2. Absent: gallop, rub - Extremities Extremities: no ischemia, No edema, Full ROM - Abdominal General gastrointestinal: soft, non-tender, non-distended, normal bowel sounds - Integumentary Integumentary: Present: clear, warm, dry - Neurologic Neurologic: CNII-XII intact, moves all extremities Results - Labs CBC & Chem 7: 08/24/19 05:59 08/25/19 07:00 Labs: Laboratory Last Values WBC 7.0 K/mm3 (4.5-11.0) 08/24/19 05:59 RBC 3.90 M/mm3 (3.65-5.03) 08/24/19 05:59 Hgb 11.3 gm/dl (11.8-15.2) L 08/24/19 05:59 Hct 33.5 % (35.5-45.6) L 08/24/19 05:59 MCV 86 fl (84-94) 08/24/19 05:59 MCH 29 pg (28-32) 08/24/19 05:59 MCHC 34 % (32-34) 08/24/19 05:59 RDW 13.7 % (13.2-15.2) 08/24/19 05:59 Plt Count 169 K/mm3 (140-440) 08/24/19 05:59 Lymph % (Auto) 29.0 % (13.4-35.0) 08/24/19 05:59 [place] % (Auto) 8.5 % (0.0-7.3) H 08/24/19 05:59 Eos % (Auto) 2.0 % (0.0-4.3) 08/24/19 05:59 Baso % (Auto) 0.7 % (0.0-1.8) 08/24/19 05:59 Lymph # 2.0 K/mm3 (1.2-5.4) 08/24/19 05:59 [place] # 0.6 K/mm3 (0.0-0.8) 08/24/19 05:59 Eos # 0.1 K/mm3 (0.0-0.4) 08/24/19 05:59 Baso # 0.1 K/mm3 (0.0-0.1) 08/24/19 05:59 Seg Neutrophils % 59.8 % (40.0-70.0) 08/24/19 05:59 Seg Neutrophils # 4.2 K/mm3 (1.8-7.7) 08/24/19 05:59 PT 14.2 Sec. (12.2-14.9) 08/24/19 05:59 INR 1.09 (0.87-1.13) 08/24/19 05:59 Sodium 142 mmol/L (137-145) 08/25/19 07:00 Potassium 4.0 mmol/L (3.6-5.0) 08/25/19 07:00 Chloride 105.9 mmol/L (98-107) 08/25/19 07:00 Carbon Dioxide 21 mmol/L (22-30) L 08/25/19 07:00 Anion Gap 19 mmol/L 08/25/19 07:00 BUN 78 mg/dL (9-20) H 08/25/19 07:00 Creatinine 10.4 mg/dL (0.8-1.5) H 08/25/19 07:00 Estimated GFR 6 ml/min 08/25/19 07:00 BUN/Creatinine Ratio 8 % 08/25/19 07:00 Glucose 95 mg/dL (75-100) 08/25/19 07:00 POC Glucose 93 (70-105) 08/25/19 08:29 Hemoglobin A1c 5.2 % (4-6) 08/23/19 Unknown Uric Acid 6.8 mg/dL (3.5-7.6) 08/22/19 22:56 Calcium 7.6 mg/dL (8.4-10.2) L 08/25/19 07:00 Phosphorus 5.00 mg/dL (2.5-4.5) H 08/23/19 07:18 Magnesium 2.10 mg/dL (1.7-2.3) 08/23/19 07:18 Total Bilirubin 0.30 mg/dL (0.1-1.2) 08/22/19 22:56 AST 24 units/L (5-40) 08/22/19 22:56 ALT 16 units/L (7-56) 08/22/19 22:56 Alkaline Phosphatase 204 units/L (35-129) H 08/22/19 22:56 Total Creatine Kinase 929 units/L (55-170) H 08/25/19 07:00 Total Protein 7.4 g/dL (6.3-8.2) 08/22/19 22:56 Albumin 4.0 g/dL (3.9-5) 08/22/19 22:56 Albumin/Globulin Ratio 1.2 % 08/22/19 22:56 TSH 2.820 mlU/mL (0.270-4.200) 08/22/19 22:56 PTH Intact 781.3 pg/mL (15-65) H 08/23/19 07:18 Urine Color Straw (Yellow) 08/22/19 04:00 Urine Turbidity Clear (Clear) 08/22/19 04:00 Urine pH 7.0 (5.0-7.0) 08/22/19 04:00 Ur Specific [place] 1.009 (1.003-1.030) 08/22/19 04:00 Urine Protein 100 mg/dl mg/dL (Negative) 08/22/19 04:00 Urine Glucose (UA) 50 mg/dL (Negative) 08/22/19 04:00 Urine Ketones Neg mg/dL (Negative) 08/22/19 04:00 Urine Blood Sm (Negative) 08/22/19 04:00 Urine Nitrite Neg (Negative) 08/22/19 04:00 Ur Reducing Substances Not Reportable 08/22/19 04:00 Urine Bilirubin Neg (Negative) 08/22/19 04:00 Urine Ictotest Not Reportable 08/22/19 04:00 Urine Urobilinogen < 2.0 mg/dL (<2.0) 08/22/19 04:00 Ur Leukocyte Esterase Neg (Negative) 08/22/19 04:00 Urine WBC (Auto) < 1.0 /HPF (0.0-6.0) 08/22/19 04:00 Urine RBC (Auto) 1.0 /HPF (0.0-6.0) 08/22/19 04:00 Urine Mucus Few /HPF 08/22/19 04:00 Urine Eosinophils None seen (None Seen) 08/23/19 Unknown Urine Osmolality 310 Mosm/kg 08/22/19 04:00 Urine Creatinine 55.4 mg/dL (0.1-20.0) H 08/22/19 04:00 Urine Sodium 99 mmol/L 08/22/19 04:00 Nasal Screen MRSA (PCR) Negative (Negative) 08/23/19 05:20 [place]/IV: Voiding Method Toilet IV Catheter Type [Right Hand] INT / Saline Lock IV Catheter Type [Right INT / Saline Lock Antecubital] Active Medications - Current Medications Current Medications: Generic Name Dose Route Start Last Admin Trade Name Freq PRN Reason Stop Dose Admin Acetaminophen 650 mg 08/23/19 01:34 Tylenol PO Q4H PRN Pain MILD(1-3)/Fever >100.5/BAPTISTE Calcitriol 0.5 mcg 08/24/19 12:00 08/24/19 12:13 Rocaltrol PO 0.5 mcg QDAY LAMAR Administration Dextrose 0 ml 08/23/19 01:34 D50w (25gm) Syringe IV Q30MIN PRN Hypoglycemia Protocol Hydralazine HCl 10 mg 08/23/19 01:40 08/24/19 12:13 Apresoline IV 10 mg Q4H PRN Administration Blood Pressure Sodium Chloride 1,000 mls @ 30 mls/hr 08/23/19 01:45 08/24/19 12:29 Nacl 0.9% 1000 Ml IV 75 mls/hr DIRECT LAMAR Administration Insulin Human Lispro 0 unit 08/23/19 07:30 08/25/19 09:38 Humalog SUB-Q Not Given ACHS LAMAR Protocol Magnesium Hydroxide 30 ml 08/23/19 01:34 Milk Of Magnesia PO Q4H PRN Constipation Metoprolol Tartrate 50 mg 08/24/19 13:00 08/24/19 22:01 Metoprolol PO 50 mg BID LAMAR Administration Morphine Sulfate 2 mg 08/23/19 01:34 Morphine IV Q4H PRN Pain, Moderate (4-6) Nifedipine 60 mg 08/24/19 10:00 08/24/19 22:01 Procardia Xl PO 60 mg Q12HR LAMAR Administration Ondansetron HCl 4 mg 08/23/19 01:34 Zofran IV Q8H PRN Nausea And Vomiting Sodium Chloride 10 ml 08/23/19 10:00 08/24/19 22:01 Sodium Chloride Flush Syringe 10 Ml IV 10 ml BID LAMAR Administration Sodium Chloride 10 ml 08/23/19 01:34 Sodium Chloride Flush Syringe 10 Ml IV PRN PRN LINE FLUSH Nutrition/Malnutrition Assess - Dietary Evaluation Nutrition/Malnutrition Findings: Nutrition Notes Start: 08/23/19 09:56 Freq: Status: Active Protocol: Document 08/25/19 09:05 LP (Rec: 08/25/19 09:10 LP [id number]) Nutrition Notes Initial or Follow up Brief Note Current Diagnosis CKD (stage V CKD),Diabetes, Hypertension,Stroke, Hyperlipidemia Other Pertinent Diagnosis New HD Current Diet NPO Subjective/Other Information Pt currently NPO for permacath placement. HD will start today. Pt consuming 75% of meals. Nutrition Intervention Follow-Up By: 08/26/19 Additional Comments Follow for diet education
[2019-08-25] MEDS ORDERED: SODIUM CHLORIDE 0.9% 100 ML IV PRN (10:37)
[2019-08-25] MEDS: HEPARIN 10,000 UNITS/10 ML VIAL ONE ×2 (10:37→10:38)
[2019-08-25] MEDS ORDERED: HEPARIN 10,000 UNITS/10 ML VIAL ONE (10:59)
--- NOTE | 2019-08-25 11:00 | Post Operative Note ---
Pre-op diagnosis: ESRD Post-op diagnosis: same Procedure: 1. Right IJ Permcath Insertion 2. Monitored Conscious Sedation Anesthesia: MAC, local Surgeon: ARIADNA JOYNER Estimated blood loss: minimal Pathology: none Condition: stable Disposition: floor
--- NOTE | 2019-08-25 11:31 | Operative Report ---
STAFF SURGEON: Dr. Tyler John. PREOPERATIVE DIAGNOSIS: End-stage renal disease. POSTOPERATIVE DIAGNOSIS: End-stage renal disease. PROCEDURES PERFORMED: 1. Right IJ PermCath insertion. 2. Monitored conscious sedation. COMPLICATIONS: None. ESTIMATED BLOOD LOSS: Less than 10 mL. ANESTHESIA: Local MAC. INDICATIONS FOR PROCEDURE: This is a 58-year-old gentleman who was hospitalized for his uncontrolled hypertension and diabetes mellitus, who is also noted to have worsening renal function that has progressed to end-stage renal disease, needing dialysis initiation, therefore vascular consultation was obtained. The patient was explained the risks, benefits and alternatives of procedure, expressed understanding and wished to proceed. DESCRIPTION OF PROCEDURE: After appropriate consent was obtained, the patient was brought back to the labour market economist, placed on table in supine position. The right neck and chest were prepped and draped in usual sterile fashion. Appropriate time-out performed indicating correct patient, procedure, and site of procedure. I then began the intervention by obtaining percutaneous access of the right internal jugular vein using micropuncture technique under ultrasound guidance. Once we obtained access, needle was exchanged with a micropuncture sheath. The stiff J-wire was then placed into the inferior vena cava. Micropuncture sheath was removed. The incision was made on the anterior chest wall. A 23 cm straight Vas-Cath was then tunneled through the chest wall site into the access site. The access site was then thoroughly dilated appropriately. Then, a sheath and dilator were placed over the wire into the SVC. The dilator and wire were removed. Catheter was placed through the peel-away sheath with the tip of the catheter at the SVC right atrial junction. Both lumens cate blood appropriately, were flushed with heparinized saline. Appropriate amount of heparin was placed in each port. The access site was then closed with deep subcutaneous layer with 3-0 Vicryl and then skin was approximated with 3-0 Ethilon. The catheter exit site was sutured in place with 3-0 nylon. Appropriate dressing was placed. The patient tolerated the procedure well, emerged from the conscious sedation and sent to recovery in stable condition. All the sponges, instrument and needle counts were correct at completion of the operation. JOB# [id number] VCN/SARAH BETH
[2019-08-25 12:19] LABS: Hepatitis B Surface Antigen Non-Reactive (Negative); Hepatitis C Virus Antibody Non-Reactive (NonReactive)
[2019-08-25] MEDS ORDERED: SODIUM CHLORIDE*PRIMING MACHINE ONLY FOR DIALYSIS MC ONE (12:32)
[2019-08-25] MEDS: CALCITRIOL 0.5 MCG CAP PO SCH (13:06)
[2019-08-25] MEDS: METOPROLOL TARTRATE 50 MG TAB PO SCH ×2 (13:06→21:42)
[2019-08-25] MEDS: NIFEdipine XL 60 MG TAB PO SCH ×2 (13:06→21:42)
[2019-08-26 06:16] LABS: Hematocrit 34.5 % (35.5-45.6); Hemoglobin 11.5 gm/dl (11.8-15.2)
[2019-08-26 06:47] LABS: Calcium 7.5 mg/dL (8.4-10.2)
[2019-08-26] MEDS ORDERED: HEPARIN 10,000 UNITS/10 ML VIAL IV PRN (06:59)
[2019-08-26] MEDS ORDERED: SODIUM CHLORIDE 0.9% 100 ML IV PRN (06:59)
[2019-08-26] MEDS: INSULIN LISPRO 100 UNIT/ML SUB-Q SCH ×4 (08:32→22:17)
--- NOTE | 2019-08-26 10:10 | Progress Note ---
Assessment and Plan 1. ESRD / CKD stage 5: Patient with h/o long standing uncontrolled HTN and DM. Multiple risk factors for ESRD including family history. Renal US showed bilateral echogenic small kidneys. DEEPIKA, ANCA, Complements, SPEP, UPEP, Anti-GBM ordered and pending. Based on the information known patient has progressed to ESRD at this time. Symptoms suggestive of uremia present. Dr. Moncada discussed with pt about indications, benefits and risks involved in hemodialysis (08/23). He voiced understanding, agreed to start on hemodialysis 08/24. Recommended kidney biopsy but he declined. Pt had numerous questions about HD after having permcath placed. All questions and concerns were addressed in presence of HD nurse and pt again agreed to HD (08/24). Monitor renal function. Renal prognosis is poor. Avoid nephrotoxic agents. Meds dosage based on GFR. R chest permcath placed 08/24. Tolerated first HD well. Needs outpatient HD chair. Hemodialysis: 08/24, 08/25. 2. FEN: Anion gap metabolic acidosis, continue IV fluids, monitor. Monitor lytes and volume status. 3. Uncontrolled hypertension: 2/2 non-compliance. Metoprolol and Nifedipine added 08/23. BP is improving. Monitor BP. 4. DM type : Blood sugar is controlled, only on SSI. Typically blood sugar gets better as renal function declines. Follow blood sugar. 5. Secondary hyperparathyroidism: Started on Calcitriol. 6. H/o TIA. 7. Mild Rhabdomyolysis: CK level is improving. Subjective Date of service: 08/26/19 Interval history: Patient was seen and examined at the bedside. Has tolerated first HD well. No complaints at time of exam. Objective - Exam Narrative Exam: General appearance: well-developed, well-nourished, appears stated age, obese, not in distress HEENT: [place], [place], hearing intact, vision intact Neck: neck supple, trachea midline Respiratory: Clear to Ascultation Heart: regular, S1S2, no murmur Gastrointestinal: soft, normoactive bowel sounds, not tender Integumentary: no rash, warm and dry Neurologic: no focal deficit, no asterixis, alert and oriented x3 Ext: no edema Psychiatric: cooperative Hemodialysis access: R chest permcath - Vital Signs Vital signs: Vital Signs - 12hr 08/26/19 04:16 Temperature 98.2 F Pulse Rate 89 Respiratory 18 Rate Blood Pressure 159/95 O2 Sat by Pulse 95 Oximetry - Lab 08/26/19 05:53 08/26/19 05:53 Most recent lab results Calcium 7.5 mg/dL (8.4-10.2) L 08/26/19 05:53 Phosphorus 5.00 mg/dL (2.5-4.5) H 08/23/19 07:18 Magnesium 2.10 mg/dL (1.7-2.3) 08/23/19 07:18 Urine Creatinine 55.4 mg/dL (0.1-20.0) H 08/22/19 04:00 Urine Sodium 99 mmol/L 08/22/19 04:00 Medications & Allergies - Medications Allergies/Adverse Reactions: Allergies No Known Allergies Allergy (Unverified 08/22/19 22:22) Active Medications: Generic Name Dose Route Start Last Admin Trade Name Freq PRN Reason Stop Dose Admin Acetaminophen 650 mg 08/23/19 01:34 08/25/19 19:28 Tylenol PO 650 mg Q4H PRN Administration Pain MILD(1-3)/Fever >100.5/BAPTISTE Calcitriol 0.5 mcg 08/24/19 12:00 08/25/19 13:06 Rocaltrol PO Not Given QDAY LAMAR Dextrose 0 ml 08/23/19 01:34 D50w (25gm) Syringe IV Q30MIN PRN Hypoglycemia Protocol Heparin Sodium (Porcine) 2,000 unit 08/26/19 06:59 Heparin 10,000 Units/10 Ml IV MEHDI PRN hemodialysis Hydralazine HCl 10 mg 08/23/19 01:40 08/24/19 12:13 Apresoline IV 10 mg Q4H PRN Administration Blood Pressure Sodium Chloride 1,000 mls @ 30 mls/hr 08/23/19 01:45 08/24/19 12:29 Nacl 0.9% 1000 Ml IV 75 mls/hr DIRECT LAMAR Administration Sodium Chloride 100 mls @ 999 mls/hr 08/26/19 06:59 Nacl 0.9% IV MEHDI PRN Hypotension Insulin Human Lispro 0 unit 08/23/19 07:30 08/26/19 08:32 Humalog SUB-Q Not Given ACHS LAMAR Protocol Magnesium Hydroxide 30 ml 08/23/19 01:34 Milk Of Magnesia PO Q4H PRN Constipation Metoprolol Tartrate 50 mg 08/24/19 13:00 08/25/19 21:42 Metoprolol PO 50 mg BID LAMAR Administration Morphine Sulfate 2 mg 08/23/19 01:34 Morphine IV Q4H PRN Pain, Moderate (4-6) Nifedipine 60 mg 08/24/19 10:00 08/25/19 21:42 Procardia Xl PO 60 mg Q12HR LAMAR Administration Ondansetron HCl 4 mg 08/23/19 01:34 Zofran IV Q8H PRN Nausea And Vomiting Sodium Chloride 10 ml 08/23/19 10:00 08/25/19 21:42 Sodium Chloride Flush Syringe 10 Ml IV 10 ml BID LAMAR Administration Sodium Chloride 10 ml 08/23/19 01:34 Sodium Chloride Flush Syringe 10 Ml IV PRN PRN LINE FLUSH
[2019-08-26] MEDS: CALCITRIOL 0.5 MCG CAP PO SCH (14:40)
[2019-08-26] MEDS: METOPROLOL TARTRATE 50 MG TAB PO SCH ×2 (14:40→22:17)
[2019-08-26] MEDS: NIFEdipine XL 60 MG TAB PO SCH ×2 (14:40→22:17)
--- NOTE | 2019-08-26 15:36 | Progress Note ---
Assessment and Plan Assessment and plan: Accelerated hypertension. Continue antihypertensive medications. Acute on CKD, now ESRD. ESRD Hemodialysis initated. Diabetes mellitus type 2. Continue Accu-Cheks and sliding scale insulin. Hyperlipidemia. 08/24/2019. Renal US showed bilateral echogenic small kidneys. Follow-up DEEPIKA, ANCA, Complements, SPEP, UPEP, Anti-GBM. Continue antihypertensive medications. Continue Accu-Cheks and sliding scale insulin. Await patient decision to start dialysis. Nephrology following. 08/25/2019. Renal US showed bilateral echogenic small kidneys. Follow-up DEEPIKA, ANCA, Complements, SPEP, UPEP, Anti-GBM. Continue antihypertensive medications. Continue Accu-Cheks and sliding scale insulin. Await patient decision to start dialysis. Nephrology following. 08/26/2019 patient with acute on CKD, now with ESRD. Hemodialysis initiated. Case management working on outpatient dialysis. History Interval history: Patient seen at Dialysis unit Hospitalist Physical - Physical exam Narrative exam: GEN: Not in acute distress, lying in bed,obese HEENT: Normocephalic, atraumatic, Neck: supple, No JVD Lungs: Clear to auscultation bilaterally, heart;S1 and S2 reg, no murmurs, rubs or gallop Abd:soft, non tender, non distended, normal bowel sounds, Ext: No edema, no clubbing, no cyanosis, Neuro: Awake,alert,oriented X3 , no focal signs, - Constitutional Vitals: Temp Pulse Resp BP Pulse Ox 98.0 F 94 H 18 176/98 95 08/26/19 14:00 08/26/19 14:40 08/26/19 14:00 08/26/19 14:40 08/26/19 04:16 General appearance: Present: no acute distress, obese Results - Labs CBC & Chem 7: 08/26/19 05:53 08/26/19 05:53 Labs: Laboratory Last Values WBC 7.0 K/mm3 (4.5-11.0) 08/24/19 05:59 RBC 3.90 M/mm3 (3.65-5.03) 08/24/19 05:59 Hgb 11.5 gm/dl (11.8-15.2) L 08/26/19 05:53 Hct 34.5 % (35.5-45.6) L 08/26/19 05:53 MCV 86 fl (84-94) 08/24/19 05:59 MCH 29 pg (28-32) 08/24/19 05:59 MCHC 34 % (32-34) 08/24/19 05:59 RDW 13.7 % (13.2-15.2) 08/24/19 05:59 Plt Count 169 K/mm3 (140-440) 08/24/19 05:59 Lymph % (Auto) 29.0 % (13.4-35.0) 08/24/19 05:59 [place] % (Auto) 8.5 % (0.0-7.3) H 08/24/19 05:59 Eos % (Auto) 2.0 % (0.0-4.3) 08/24/19 05:59 Baso % (Auto) 0.7 % (0.0-1.8) 08/24/19 05:59 Lymph # 2.0 K/mm3 (1.2-5.4) 08/24/19 05:59 [place] # 0.6 K/mm3 (0.0-0.8) 08/24/19 05:59 Eos # 0.1 K/mm3 (0.0-0.4) 08/24/19 05:59 Baso # 0.1 K/mm3 (0.0-0.1) 08/24/19 05:59 Seg Neutrophils % 59.8 % (40.0-70.0) 08/24/19 05:59 Seg Neutrophils # 4.2 K/mm3 (1.8-7.7) 08/24/19 05:59 PT 14.2 Sec. (12.2-14.9) 08/24/19 05:59 INR 1.09 (0.87-1.13) 08/24/19 05:59 Sodium 144 mmol/L (137-145) 08/26/19 05:53 Potassium 3.6 mmol/L (3.6-5.0) 08/26/19 05:53 Chloride 104.0 mmol/L (98-107) 08/26/19 05:53 Carbon Dioxide 23 mmol/L (22-30) 08/26/19 05:53 Anion Gap 21 mmol/L 08/26/19 05:53 BUN 56 mg/dL (9-20) H 08/26/19 05:53 Creatinine 8.4 mg/dL (0.8-1.5) H 08/26/19 05:53 Estimated GFR 8 ml/min 08/26/19 05:53 BUN/Creatinine Ratio 7 % 08/26/19 05:53 Glucose 87 mg/dL (75-100) 08/26/19 05:53 POC Glucose 76 (70-105) 08/26/19 08:10 Hemoglobin A1c 5.2 % (4-6) 08/23/19 Unknown Uric Acid 6.8 mg/dL (3.5-7.6) 08/22/19 22:56 Calcium 7.5 mg/dL (8.4-10.2) L 08/26/19 05:53 Phosphorus 5.00 mg/dL (2.5-4.5) H 08/23/19 07:18 Magnesium 2.10 mg/dL (1.7-2.3) 08/23/19 07:18 Total Bilirubin 0.30 mg/dL (0.1-1.2) 08/22/19 22:56 AST 24 units/L (5-40) 08/22/19 22:56 ALT 16 units/L (7-56) 08/22/19 22:56 Alkaline Phosphatase 204 units/L (35-129) H 08/22/19 22:56 Total Creatine Kinase 787 units/L (55-170) H 08/26/19 05:53 Total Protein 7.4 g/dL (6.3-8.2) 08/22/19 22:56 Albumin 4.0 g/dL (3.9-5) 08/22/19 22:56 Albumin/Globulin Ratio 1.2 % 08/22/19 22:56 TSH 2.820 mlU/mL (0.270-4.200) 08/22/19 22:56 PTH Intact 781.3 pg/mL (15-65) H 08/23/19 07:18 Urine Color Straw (Yellow) 08/22/19 04:00 Urine Turbidity Clear (Clear) 08/22/19 04:00 Urine pH 7.0 (5.0-7.0) 08/22/19 04:00 Ur Specific [place] 1.009 (1.003-1.030) 08/22/19 04:00 Urine Protein 100 mg/dl mg/dL (Negative) 08/22/19 04:00 Urine Glucose (UA) 50 mg/dL (Negative) 08/22/19 04:00 Urine Ketones Neg mg/dL (Negative) 08/22/19 04:00 Urine Blood Sm (Negative) 08/22/19 04:00 Urine Nitrite Neg (Negative) 08/22/19 04:00 Ur Reducing Substances Not Reportable 08/22/19 04:00 Urine Bilirubin Neg (Negative) 08/22/19 04:00 Urine Ictotest Not Reportable 08/22/19 04:00 Urine Urobilinogen < 2.0 mg/dL (<2.0) 08/22/19 04:00 Ur Leukocyte Esterase Neg (Negative) 08/22/19 04:00 Urine WBC (Auto) < 1.0 /HPF (0.0-6.0) 08/22/19 04:00 Urine RBC (Auto) 1.0 /HPF (0.0-6.0) 08/22/19 04:00 Urine Mucus Few /HPF 08/22/19 04:00 Urine Eosinophils None seen (None Seen) 08/23/19 Unknown Urine Osmolality 310 Mosm/kg 08/22/19 04:00 Urine Creatinine 55.4 mg/dL (0.1-20.0) H 08/22/19 04:00 Urine Sodium 99 mmol/L 08/22/19 04:00 Nasal Screen MRSA (PCR) Negative (Negative) 08/23/19 05:20 Hepatitis A IgM Ab Non-reactive (NonReactive) 08/25/19 07:00 Hep Bs Antigen Non-reactive (Negative) 08/25/19 07:00 Hep B Core IgM Ab Non-reactive (NonReactive) 08/25/19 07:00 Hepatitis C Antibody Non-reactive (NonReactive) 08/25/19 07:00 [place]/IV: Voiding Method Toilet IV Catheter Type [Right Peripheral IV Internal Jugular] IV Catheter Type [Right Hand] INT / Saline Lock IV Catheter Type [Right INT / Saline Lock Antecubital] Active Medications - Current Medications Current Medications: Generic Name Dose Route Start Last Admin Trade Name Freq PRN Reason Stop Dose Admin Acetaminophen 650 mg 08/23/19 01:34 08/25/19 19:28 Tylenol PO 650 mg Q4H PRN Administration Pain MILD(1-3)/Fever >100.5/BAPTISTE Calcitriol 0.5 mcg 08/24/19 12:00 08/26/19 14:40 Rocaltrol PO 0.5 mcg QDAY LAMAR Administration Dextrose 0 ml 08/23/19 01:34 D50w (25gm) Syringe IV Q30MIN PRN Hypoglycemia Protocol Heparin Sodium (Porcine) 2,000 unit 08/26/19 06:59 Heparin 10,000 Units/10 Ml IV MEHDI PRN hemodialysis Hydralazine HCl 10 mg 08/23/19 01:40 08/24/19 12:13 Apresoline IV 10 mg Q4H PRN Administration Blood Pressure Sodium Chloride 1,000 mls @ 30 mls/hr 08/23/19 01:45 08/24/19 12:29 Nacl 0.9% 1000 Ml IV 75 mls/hr DIRECT LAMAR Administration Sodium Chloride 100 mls @ 999 mls/hr 08/26/19 06:59 Nacl 0.9% IV MEHDI PRN Hypotension Insulin Human Lispro 0 unit 08/23/19 07:30 08/26/19 12:00 Humalog SUB-Q Not Given ACHS [facility] Protocol Magnesium Hydroxide 30 ml 08/23/19 01:34 Milk Of Magnesia PO Q4H PRN Constipation Metoprolol Tartrate 50 mg 08/24/19 13:00 08/26/19 14:40 Metoprolol PO 50 mg BID LAMAR Administration Morphine Sulfate 2 mg 08/23/19 01:34 Morphine IV Q4H PRN Pain, Moderate (4-6) Nifedipine 60 mg 08/24/19 10:00 08/26/19 14:40 Procardia Xl PO 60 mg Q12HR LAMAR Administration Ondansetron HCl 4 mg 08/23/19 01:34 Zofran IV Q8H PRN Nausea And Vomiting Sodium Chloride 10 ml 08/23/19 10:00 08/26/19 14:41 Sodium Chloride Flush Syringe 10 Ml IV 10 ml BID LAMAR Administration Sodium Chloride 10 ml 08/23/19 01:34 Sodium Chloride Flush Syringe 10 Ml IV PRN PRN LINE FLUSH Nutrition/Malnutrition Assess - Dietary Evaluation Nutrition/Malnutrition Findings: Nutrition Notes Start: 08/23/19 09:56 Freq: Status: Active Protocol: Document 08/26/19 10:28 LP (Rec: 08/26/19 10:30 LP [id number]) Nutrition Notes Need for Assessment generated from: Education Initial or Follow up Brief Note Current Diagnosis CKD (stage V CKD),Diabetes, Hypertension,Stroke, Hyperlipidemia Other Pertinent Diagnosis New HD Current Diet Consistent CHO diet Subjective/Other Information Pt had permacath placed. 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 Pt does consume some of meal. Pt states he is new to HD. #1 Nutrition Diagnosis Food and nutrition-related knowledge deficit Etiology HD diet As Evidenced by Signs and Symptoms Pt new to HD Nutrition Intervention Teaching Recipient Patient Learning Readiness Good Teaching Methods Discussion,Handout Response to Teaching Verbalize understanding Education Handouts Provided CKD 5 nutrition therapy Barriers to Learning No Barriers RD phone number provided Yes Patient aware of follow up options Yes Revisit per MD consult or patient Sign Off request:
[2019-08-26] MEDS ORDERED: SODIUM CHLORIDE 0.9% 1000 ML 2,000 ML ONE (15:49)
--- NOTE | 2019-08-26 20:28 | XRay Report ---
CHEST 1 VIEW INDICATION / CLINICAL INFORMATION: Rule out TB r/t Dialysis placement. COMPARISON: None available. FINDINGS: SUPPORT DEVICES: Tip of the permacath projects the level the superior vena cava. HEART / MEDIASTINUM: The thoracic aorta is tortuous there is prominence of the aortic arch. LUNGS / PLEURA: No significant pulmonary or pleural abnormality.. No pneumothorax. ADDITIONAL FINDINGS: No significant additional findings. IMPRESSION: 1. No acute findings. Thoracic aorta is tortuous there is prominence of the aortic arch. The lungs ar e clear. Signer Name: Jackson Figueroa MD Signed: 08/26/2019 8:24 PM Workstation Name: [id number]
[2019-08-26 23:22] LABS: Myeloperoxidase Antibody <1.0 AI (<1.0)
[2019-08-27 05:51] LABS: Calcium 7.9 mg/dL (8.4-10.2)
[2019-08-27] MEDS: INSULIN LISPRO 100 UNIT/ML SUB-Q SCH (07:53)
[2019-08-27] MEDS: METOPROLOL TARTRATE 50 MG TAB PO SCH (09:53)
[2019-08-27] MEDS: NIFEdipine XL 60 MG TAB PO SCH (09:54)
[2019-08-27] MEDS: CALCITRIOL 0.5 MCG CAP PO SCH (09:54)
--- NOTE | 2019-08-27 11:52 | Progress Note ---
Assessment and Plan 1. ESRD / CKD stage 5: Patient with h/o long standing uncontrolled HTN and DM. Multiple risk factors for ESRD including family history. Renal US showed bilateral echogenic small kidneys. DEEPIKA, ANCA, Complements, SPEP, UPEP, Anti-GBM ordered and pending. Based on the information known patient has progressed to ESRD at this time. Symptoms suggestive of uremia present. Dr. Moncada discussed with pt about indications, benefits and risks involved in hemodialysis (08/23). He voiced understanding, agreed to start on hemodialysis 08/24. Recommended kidney biopsy but he declined. Pt had numerous questions about HD after having permcath placed. All questions and concerns were addressed in presence of HD nurse and pt again agreed to HD (08/24). Monitor renal function. Renal prognosis is poor. Avoid nephrotoxic agents. Meds dosage based on GFR. R chest permcath placed 08/24. Tolerated first HD well. Outpatient HD chair is confirmed, pt can start tomorrow, 08/27. Hemodialysis: 08/24, 08/25. 2. FEN: Anion gap metabolic acidosis, continue IV fluids, monitor. Monitor lytes and volume status. 3. Uncontrolled hypertension: 2/2 non-compliance. Metoprolol and Nifedipine added 08/23. BP is improving. Monitor BP. 4. DM type : Blood sugar is controlled, only on SSI. Typically blood sugar gets better as renal function declines. Follow blood sugar. 5. Secondary hyperparathyroidism: Started on Calcitriol. 6. H/o TIA. 7. Mild Rhabdomyolysis: CK level is improving. Subjective Date of service: 08/27/19 Interval history: Patient was seen and examined at the bedside. Has tolerated HD well. No complaints at time of exam. Plan is for pt to d/c today, will start outpatient HD tomorrow. Objective - Exam Narrative Exam: General appearance: well-developed, well-nourished, appears stated age, obese, not in distress HEENT: [place], [place], hearing intact, vision intact Neck: neck supple, trachea midline Respiratory: Clear to Ascultation Heart: regular, S1S2, no murmur Gastrointestinal: soft, normoactive bowel sounds, not tender Integumentary: no rash, warm and dry Neurologic: no focal deficit, no asterixis, alert and oriented x3 Ext: no edema Psychiatric: cooperative Hemodialysis access: R chest permcath - Vital Signs Vital signs: Vital Signs - 12hr 08/27/19 08/27/19 04:27 09:53 Temperature 99.4 F Pulse Rate 81 85 Respiratory 19 Rate Blood Pressure 152/93 150/85 O2 Sat by Pulse 98 Oximetry - Lab 08/26/19 05:53 08/27/19 04:37 Most recent lab results Calcium 7.9 mg/dL (8.4-10.2) L 08/27/19 04:37 Phosphorus 5.00 mg/dL (2.5-4.5) H 08/23/19 07:18 Magnesium 2.10 mg/dL (1.7-2.3) 08/23/19 07:18 Urine Creatinine 55.4 mg/dL (0.1-20.0) H 08/22/19 04:00 Urine Sodium 99 mmol/L 08/22/19 04:00 Medications & Allergies - Medications Allergies/Adverse Reactions: Allergies No Known Allergies Allergy (Unverified 08/22/19 22:22) Active Medications: Generic Name Dose Route Start Last Admin Trade Name Freq PRN Reason Stop Dose Admin Acetaminophen 650 mg 08/23/19 01:34 08/25/19 19:28 Tylenol PO 650 mg Q4H PRN Administration Pain MILD(1-3)/Fever >100.5/BAPTISTE Calcitriol 0.5 mcg 08/24/19 12:00 08/27/19 09:54 Rocaltrol PO 0.5 mcg QDAY LAMAR Administration Dextrose 0 ml 08/23/19 01:34 D50w (25gm) Syringe IV Q30MIN PRN Hypoglycemia Protocol Heparin Sodium (Porcine) 2,000 unit 08/26/19 06:59 Heparin 10,000 Units/10 Ml IV MEHDI PRN hemodialysis Hydralazine HCl 10 mg 08/23/19 01:40 08/24/19 12:13 Apresoline IV 10 mg Q4H PRN Administration Blood Pressure Sodium Chloride 1,000 mls @ 30 mls/hr 08/23/19 01:45 08/24/19 12:29 Nacl 0.9% 1000 Ml IV 75 mls/hr DIRECT LAMAR Administration Sodium Chloride 100 mls @ 999 mls/hr 08/26/19 06:59 Nacl 0.9% IV MEHDI PRN Hypotension Insulin Human Lispro 0 unit 08/23/19 07:30 08/27/19 07:53 Humalog SUB-Q Not Given ACHS [facility] Protocol Magnesium Hydroxide 30 ml 08/23/19 01:34 Milk Of Magnesia PO Q4H PRN Constipation Metoprolol Tartrate 50 mg 08/24/19 13:00 08/27/19 09:53 Metoprolol PO 50 mg BID LAMAR Administration Morphine Sulfate 2 mg 08/23/19 01:34 Morphine IV Q4H PRN Pain, Moderate (4-6) Nifedipine 60 mg 08/24/19 10:00 08/27/19 09:54 Procardia Xl PO 60 mg Q12HR LAMAR Administration Ondansetron HCl 4 mg 08/23/19 01:34 Zofran IV Q8H PRN Nausea And Vomiting Sodium Chloride 10 ml 08/23/19 10:00 08/27/19 09:54 Sodium Chloride Flush Syringe 10 Ml IV 10 ml BID LAMAR Administration Sodium Chloride 10 ml 08/23/19 01:34 Sodium Chloride Flush Syringe 10 Ml IV PRN PRN LINE FLUSH
[2019-08-27 12:33] LABS: ANA Screen, IFA Negative (Negative)
[2019-08-27 13:03] VITALS: BP 123/76
--- NOTE | 2019-08-27 13:50 | Discharge Summary ---
Providers - Providers Date of Admission: 08/25/19 12:24 Date of discharge: 08/27/19 Attending physician: SHARAD KELLEY 08/22/19 23:39 Consult to Physician [CONS] Urgent Comment: Consulting Provider: BARBI ALVAREZ Physician Instructions: Reason For Exam: ckd 08/23/19 01:34 Consult to Dietitian/Nutrition [CONS] Routine Physician Instructions: Reason For Exam: Reason for Consult: Diet education 08/24/19 12:38 Consult to Interventional Radiology [CONS] Routine Consulting Provider: JAN ZENG Reason For Exam: Tunnel hemodialysis catheter placement. Place consult to:: dr. zeng Notified:: Phone number called:: [phone] Was contact made?: Yes If yes, spoke with:: mirza Time called:: 14:03 Hospitalization Condition: Fair Hospital course: 58-year-old male with known history of hypertension, diabetes mellitus, hyperlipidemia and TIA who appears to be noncompliant with his medications presented to the emergency room after being seen by a local physician group and encouraged to report to the emergency room for evaluation. Blood pressure was said to be quite elevated and had acute on chronic kidney disease. Evaluation in the emergency room revealed acute on chronic kidney disease and hypertensive urgency 226/137. He was started on Hydralazine, home meds resumed and was admitted. He was evaluated by Nephrology. He was diagnosed with ESRD and started on hemodialysis. Arrangements were made for outpatient hemodialysis and he was discharged home on 08/27/19 to follow as outpatient. Accelerated hypertension. Treated with Hydralazine iv prn Resumed home meds. Added Nifedipine. Acute on CKD, now ESRD. ESRD Hemodialysis initated and he will continue hemodialysis outpatient Diabetes mellitus type 2. Hyperlipidemia. 08/24/2019. Renal US showed bilateral echogenic small kidneys. Follow-up DEEPIKA, ANCA, Complements, SPEP, UPEP, Anti-GBM. Continue antihypertensive medications. Continue Accu-Cheks and sliding scale insulin. Await patient decision to start dialysis. Nephrology following. 08/25/2019. Renal US showed bilateral echogenic small kidneys. Follow-up DEEPIKA, ANCA, Complements, SPEP, UPEP, Anti-GBM. Continue antihypertensive medications. Continue Accu-Cheks and sliding scale insulin. Await patient decision to start dialysis. Nephrology following. 08/26/2019 patient with acute on CKD, now with ESRD. Hemodialysis initiated. Case management working on outpatient dialysis. Total time spent on discharge, 33 mins Disposition: [id number] TO HOME OR SELFCARE Core Measure Documentation - Palliative Care Palliative Care/ Comfort Measures: Not Applicable - Core Measures Any of the following diagnoses?: none Exam - Constitutional Vitals: Temp Pulse Resp BP Pulse Ox 98.9 F 72 22 123/76 99 08/27/19 11:44 08/27/19 11:44 08/27/19 11:44 08/27/19 11:44 08/27/19 11:44 Plan Activity: no restrictions Diet: low fat, low cholesterol, low salt, renal Additional Instructions: 1.Follow up with PCP in 1 week. 2.Continue hemodialysis as outpatient to start tomorrow 08/28/2019. 3.Follow up with Dr. Alvarez, [facility] Plan of Treatment: 1.Follow up with PCP in 1 week. 2.Continue hemodialysis as outpatient to start tomorrow 08/28/2019. 3.Follow up with Dr. Alvarez, [facility] Follow up with: ODILIA VILLALBA [Other] - 3-5 Days Prescriptions: Metoprolol [Lopressor TAB] 50 mg PO BID #60 tablet NIFEdipine XL [Procardia Xl] 60 mg PO Q12HR #60 tablet
[2019-08-27 23:57] LABS: Albumin 2.9 g/dL (3.8-4.8)
== END 2019-08-27 16:18 | disposition home or self-care (01) | DRG 673 ==
LOC: ED 21:43 → UNDOADMOB 08-23 00:17 → IMCU 08-23 00:17 → OBSVTOIN 08-25 12:24 → IMCU 08-26 22:12
PROVIDERS: ADMIT Internal Medicine Geriatric Medicine; ATTEND Internal Medicine
PROC: 5A1D70Z Performance of Urinary Filtration, Intermittent, Less than 6 Hours Per Day (ICD-10-PCS; principal; 2019-08-25)
PROC: 0JH63XZ Insertion of Tunneled Vascular Access Device into Chest Subcutaneous Tissue and Fascia, Percutaneous Approach (ICD-10-PCS; 2019-08-25)
PROC: 02HV33Z Insertion of Infusion Device into Superior Vena Cava, Percutaneous Approach (ICD-10-PCS; 2019-08-25)
PROC: B548ZZA Ultrasonography of Superior Vena Cava, Guidance (ICD-10-PCS; 2019-08-25)
PROC: 5A1D70Z Performance of Urinary Filtration, Intermittent, Less than 6 Hours Per Day (ICD-10-PCS; 2019-08-26)
DX: I12.0 Hypertensive chronic kidney disease with stage 5 chronic kidney disease or end stage renal disease (principal); N18.6 End stage renal disease; M62.82 Rhabdomyolysis; E87.2 Acidosis; N25.81 Secondary hyperparathyroidism of renal origin; N17.9 Acute kidney failure, unspecified; I16.0 Hypertensive urgency; E78.00 Pure hypercholesterolemia, unspecified; Z91.14 Patient's other noncompliance with medication regimen; Z86.73 Personal history of transient ischemic attack (TIA), and cerebral infarction without residual deficits; E78.5 Hyperlipidemia, unspecified; E66.9 Obesity, unspecified; Z68.33 Body mass index [BMI] 33.0-33.9, adult; Z82.49 Family history of ischemic heart disease and other diseases of the circulatory system; E11.22 Type 2 diabetes mellitus with diabetic chronic kidney disease; Z99.2 Dependence on renal dialysis; Z79.4 Long term (current) use of insulin
CPT/HCPCS: 36415; 36558; 70450; 71046; 76770; 76937; 77001; 80048; 80053; 80074; 81001; 82550; 82570; 82962; 83036; 83520; 83735; 83935; 83970; 84100; 84165; 84166; 84300; 84443; 84550; 85014; 85018; 85025; 85027; 85610; 86021; 86038; 86160; 87641; 89050; 93005; G0378; C1750; J0360; J1170; J1644; J1815; J2250; J3010; J7030; J7040; J7050